=== PATIENT | male | born 1985 | race Caucasian/White ===

== ENCOUNTER 2016-11-20 10:12 | Day surgery (SDC) | payer SELFPAY ==
[~2016-11-20] VITALS: Ht 175.3 cm; Wt 63.5 kg
[2016-11-20] MEDS ORDERED: ONDANSETRON 4 MG/2 ML (SDV) Z0FRAN IVP ONE (10:45)
[2016-11-20] MEDS ORDERED: fentaNYL INJECTION 100 MCG/2 ML AMP IVP ONE (10:45)
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
[2016-11-20 11:01] LABS: BASOPHILS % (AUTO) 0 % (0-10); EOSINOPHILS # (AUTO) 0.5 10^3/uL (0.0-0.3); EOSINOPHILS % (AUTO) 4 % (0-10); LYMPHOCYTES # (AUTO) 2.2 X 10^3 (1.0-4.0); LYMPHOCYTES % (AUTO) 17 % (12-44); MEAN CORPUSCULAR HEMOGLOBIN 31 PG (25-34); MEAN CORPUSCULAR HGB CONC 34 G/DL (32-36); MEAN CORPUSCULAR VOLUME 90 FL (80-99); MEAN PLATELET VOLUME 9.6 FL (7.4-10.4); MONOCYTES # (AUTO) 0.9 X 10^3 (0.0-1.0); MONOCYTES % (AUTO) 7 % (0-12); NEUTROPHILS # (AUTO) 9.4 X 10^3 (1.8-7.8); NEUTROPHILS % (AUTO) 72 % (42-75); PLATELET COUNT 408 10^3/uL (130-400); RED CELL DISTRIBUTION WIDTH 13.3 % (10.0-14.5)
[2016-11-20] MEDS ORDERED: cefTRIAXone INJECTION 1,000 MG in NS (IVPB) 50 ML IV ONE (11:15)
[2016-11-20] MEDS ORDERED: CLINDAMYCIN INJECTION 900 MG in NS (IVPB) 50 ML IV ONE (11:15)
[2016-11-20] MEDS ORDERED: TETANUS,DIPTH,PERTUSS P/F (BOOSTRIX) 0.5 ML VIAL IM ONE (11:15)
[2016-11-20 11:22] LABS: ALANINE AMINOTRANSFERASE 51 U/L (0-55); ALBUMIN 3.8 GM/DL (3.2-4.5); ANION GAP 7 MMOL/L (5-14); ASPARTATE AMINO TRANSFERASE 20 U/L (5-34); BILIRUBIN,TOTAL 0.6 MG/DL (0.1-1.0); BLOOD UREA NITROGEN 22 MG/DL (7-18); BUN/CREATININE RATIO 17; CALCIUM 9.7 MG/DL (8.5-10.1); CARBON DIOXIDE 30 MMOL/L (21-32); CHLORIDE 96 MMOL/L (98-107); GFR ESTIMATED > 60; GLUCOSE 395 MG/DL (70-105); POTASSIUM 4.4 MMOL/L (3.6-5.0); SODIUM 133 MMOL/L (135-145); TOTAL PROTEIN 7.9 GM/DL (6.4-8.2); hs C REACTIVE PROTEIN 1.18 MG/DL (0.00-0.50)
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
[2016-11-20] MEDS ORDERED: NS IV 1000 ML 1,000 ML IV ONE (11:30)
[2016-11-20] MEDS ORDERED: inSUlin (REGULAR) HUMAN 1 UNIT/0.01 ML (CHARGE PER UNIT) IV ONE (11:30)
[2016-11-20] MEDS ORDERED: KETOROLAC 30 MG/ML VIAL IVP ONE (11:30)
[2016-11-20] MEDS ORDERED: VANCOMYCIN INJECTION 1,000 MG in NS (IVPB) 250 ML IV ONE (12:00)
[2016-11-20] MEDS ORDERED: D5 NS 1000 ML IV SOLUTION 1,000 ML IV ONE ×2 (13:21→13:30)
[2016-11-20] MEDS ORDERED: MIDAZOLAM 2 MG/2 ML (VERSED) VIAL ONE (13:26)
[2016-11-20] MEDS ORDERED: SUCCINYLCHOLINE INJ 100 MG/5 ML SYR ONE (13:26)
[2016-11-20] MEDS ORDERED: proPOfol 200 MG/20 ML (DIPRIVAN) VIAL IV ONE (13:26)
[2016-11-20] MEDS ORDERED: fentaNYL INJECTION 100 MCG/2 ML AMP ONE (13:26)
[2016-11-20] MEDS ORDERED: BUPIVACAINE 0.25% 30 ML (SENSORCAINE) VIAL ONE (13:34)
[2016-11-20] MEDS ORDERED: BUP/EPI 0.5% 1:200,000 (MARCAINE) 10ML VIAL IJ ONE (13:34)
[2016-11-20] MEDS ORDERED: NEO/POLY/BAC (NEOSPORIN) OINT 15 GM TUBE ONE (13:35)
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
--- OUTSIDE RECORDS SUMMARY | 2016-11-20 13:46 | XMS REPORT | Clinical Summary ---
Author Author [facility] Organization [facility] Address Unknown Phone Unavailable Care Team Providers Care Sql Database Developer Name Role Phone PCP Unavailable Source Comments Some departments are not documenting in the electronic medical record. If you do not see the information that you expected, contact Release of Information in the Health Information Management department at [phone] for further assistance in locating additional records.[facility] Allergies Active Allergy Reactions Severity Noted Date Comments Sulfa (Sulfonamide HIVES Medium 06/22/2014 Antibiotics) Current Medications Prescription Sig. Disp. Refills Start End Date Status Date amitriptyline (ELAVIL) 25 Take 1 Tab by mouth at 30 Tab 0 06/23/19 Active mg tablet bedtime daily. 15 amitriptyline (ELAVIL) 25 Take 1 Tab by mouth at 30 Tab 0 20 Active mg tablet bedtime daily. 15 Active Problems Not on file Social History Tobacco Use Types Packs/Day Years Used Date Never Assessed Sex Assigned at Date Recorded Not on file Last Filed Vital Signs Vital Sign Reading Time Taken Blood Pressure 130/91 06/22/2014 6:00 PM CDT Pulse 97 06/22/2014 6:00 PM CDT Temperature 36.7 C (98.1 F) 06/22/2014 12:44 PM CDT Respiratory Rate - - Oxygen Saturation 100% 06/22/2014 6:00 PM CDT Inhaled Oxygen - - Concentration Weight 63.5 kg (140 lb) 06/22/2014 12:44 PM CDT Height - - Body Mass Index - - Plan of Treatment Health Maintenance Due Date Last Done Comments PHYSICAL (COMPREHENSIVE) 10/12/1991 EXAM PERTUSSIS VACCINE 10/12/1995 TETANUS VACCINE 2001 INFLUENZA VACCINE 11/12/2016 Results Not on filefrom Last 3 Months
--- OUTSIDE RECORDS SUMMARY | 2016-11-20 13:47 | XMS REPORT ---
Author Author [employer], SYSTEM Organization Unknown Address Unknown Phone Unavailable Care Team Providers Care Java Solutions Architect Name Role Phone [facility] Unavailable Reason For Visit Chief Complaint HAND INJURY Social History Functional Status Vital Signs Results Chemistry from 03/11/2016 4:40 PMSODIUM 140 MMOL/L (136-145 MMOL/L) POTASSIUM 3.7 MMOL/L (3.5-5.1 MMOL/L) CHLORIDE 104 MMOL/L (98-107 MMOL/L) TCO2 27.7 MMOL/L (21.0-32.0 MMOL/L) *ANION GAP 8.3 MMOL/L (8.0-16.0 MMOL/L) BUN 9 MG/DL (7-18 MG/DL) CREATININE 0.79 MG/DL (0.70-1.30 MG/DL) *BUN/CREATININE RATIO 11.4 (9.1-17.0 ) GLUCOSE 114 MG/DL H (65-99 MG/DL) *GFR EST NON AFR GERMAN >90 ML/MIN *GFR EST AFR AMER >90 ML/MIN CALCIUM 8.3 MG/DL L (8.5-10.1 MG/DL) BILIRUBIN TOTAL 0.70 MG/DL (0.20-1.00 MG/DL) TOTAL PROTEIN 6.9 GM/DL (6.4-8.2 GM/DL) ALBUMIN 3.2 GM/DL L (3.4-5.0 GM/DL) *GLOBULIN 3.7 GM/DL H (2.3-3.5 GM/DL) *A/G RATIO 0.9 MG/DL L (1.5-2.2 MG/DL) ALK PHOS 68 U/L (46-116 U/L) ALT (SGPT) 42 U/L (14-59 U/L) AST (SGOT) 42 U/L H (15-37 U/L) Hematology from 03/11/2016 4:40 PMWBC 12.5 X10e3/UL H (3.6-11.2 X10e3/UL) RBC 4.07 X10e6/UL (4.06-5.63 X10e6/UL) HEMOGLOBIN 12.6 G/DL (12.5-16.3 G/DL) HEMATOCRIT 37.9 % (36.7-47.1 %) *MCV 93.2 FL (80.0-100.0 FL) *MCH 31.1 PG (27.0-33.0 PG) *MCHC 33.3 G/DL (32.0-36.0 G/DL) *RDW 14.4 % (12.3-17.0 %) *RDWSD 46.8 (37.1-47.8 ) PLATELET 265 X10e3/UL (159-386 X10e3/UL) *MPV 8.1 FL (7.4-10.4 FL) AUTOMATED DIFF PERFORMED SEGS 75.0 % *LYMPHOCYTES 16.7 % *MONOCYTES 5.9 % *EOSINOPHILS 1.5 % *BASOPHILS 0.9 % *ABSOLUTE NEUTROPHILS 9.40 X10e3/UL H (1.80-7.80 X10e3/UL) *ABSOLUTE LYMPHOCYTES 2.10 X10e3/UL (1.00-3.00 X10e3/UL) *ABSOLUTE MONOCYTES 0.70 X10e3/UL (0.30-1.00 X10e3/UL) *ABSOLUTE EOSINOPHILS 0.20 X10e3/UL (0.00-0.50 X10e3/UL) *ABSOLUTE BASOPHILS 0.10 X10e3/UL (0.00-0.20 X10e3/UL) DX Radiology from 03/11/2016 3:28 PMHAND RIGHT 3 VIEWS History: hand injury . Technique: 3view hand Priors: None. Findings: There is no fracture. There is no dislocation. The distal radius and ulna appear intact. The carpal bones and joint spaces appear well maintained. No radiopaque foreign bodies identified. Impression: Unremarkable radiographs of the right hand. Electronically signed by: Quincy Martinez MD Dictated: 03/11/2016 15:43 Problems Encounter Diagnosis No relevant problems exist. Additional Problems * Anxiety Comment:Problem resolved by [facility] Workflow upon Discharge, Status: Resolved. * Bipolar Affective Disorder, Current Episode Depression Comment:Problem resolved by [facility] Work[employer] upon Discharge, Status:Resolved. * Bipolar Disorder Comment:Problem resolved by [facility] Workflow upon Discharge, Status:Resolved. * Blood Glucose Abnormal Comment:Problem resolved by [facility] Workflow upon Discharge, Status:Resolved. * Delusional Disorder Comment:Problem resolved by [facility] Workflow upon Discharge, Status:Resolved. * Depression Comment:Problem resolved by [employer] Workflow upon Discharge, Status :Resolved. * Diabetes Mellitus Comment:Problem resolved by [facility] Workflow upon Discharge , Status:Resolved. * Diabetes Mellitus, Type 2 Comment:Problem resolved by [facility] Workflow upon Discharge, Status:Resolved. * Drug Abuse Comment:Problem resolved by [facility] Workflow upon Discharge, Status :Resolved. * Drug Overdose Comment:Problem resolved by [facility] Workflow upon Discharge, Status:Resolved. * Fall Risk Comment:Problem resolved by [employer] Workflow upon Discharge, Rank:3 - Low, Status:Resolved. * Feeling Suicidal Comment:Problem resolved by [facility] Workflow upon Discharge, Status:Resolved. * Hyperglycemia Comment:Problem resolved by [employer] Workflow upon Discharge, Status:Resolved. * Hyperglycemia Comment:Problem resolved by [employer] Workflow upon Discharge, Status:Resolved. * Infection Risk Comment:Problem resolved by [employer] Workflow upon Discharge, Status:Resolved. * Mood Disorder Comment:Problem resolved by [employer] Workflow upon Discharge, Status:Resolved. * Mood Disorder Comment:Problem resolved by [employer] Workflow upon Discharge, Status:Resolved. * Rhabdomyolysis Comment:Problem resolved by [facility] Workflow upon Discharge, Status:Resolved. Encounters Encounter Diagnosis No relevant problems exist. Plan of Care Procedures * Completed , on 02/19/2011 12:00 AM * Completed , on 10/27/2010 12:00 AM * Completed , on 10/22/2010 12:00 AM * Completed , on 10/17/2010 12:00 AM * Completed , on 10/17/2010 12:00 AM * Completed , on 01/18/2009 12:00 AM Immunizations * Influenza, seasonal, injectable (NOVARTIS VACCIN, Lot # [id number]); Administered 02/23/2014 9:20 AM; 0.5 ML=1 DOSE, INTRAMUSCL Hospital Course Hospital Discharge Instructions Allergies, Adverse Reactions, Alerts * Sulfa (Sulfonamide Antibiotics) causes Hives. * doxycycline causes Severe Nausea. * Latex Allergy has not been assessed. * IV Contrast Allergy has not been assessed. * No Known Food Allergies. Medication Medication reconciliation has not been performed.
--- OUTSIDE RECORDS SUMMARY | 2016-11-20 13:47 | XMS REPORT ---
Author Author GENERATED, SYSTEM Organization Unknown Address Unknown Phone Unavailable Care Team Providers Care Relocation Services Specialist Name Role Phone UNASSIGNED DOCTOR , DOCTOR PP Reason For Visit Reason for Visit from 04/19/2016 7:49 AM:* Pt Stated Reason for Adm : Paranoid and unable to care for himself Reason for Visit from 04/18/2016 3:00 AM:* Pt Stated Reason for Adm : Paranoid and unable to care for herself Chief Complaint UNSPECIFIED SCHIZOPHRENIA OR OTHER Social History Social History from 04/20/2016 10:32 AM:* Tobacco Use? : Current Everyday Smoker Social History from 04/19/2016 7:49 AM:* Tobacco Use? : Current Everyday Smoker Social History from 04/18/2016 3:00 AM:* Tobacco Use? : Current Everyday Smoker Functional Status Functional Status from 04/20/2016 9:00 AM:* LOC : Alert * Oriented To : Person,Place,Time,Event * Weight Bearing Status : Full * Assist Level : Independent * # Assists : Independent Functional Status from 04/19/2016 7:15 PM:* LOC : Alert * Oriented To : Person,Place,Time,Event * Weight Bearing Status : Full * Assist Level : Independent * # Assists : Independent Functional Status from 04/19/2016 9:00 AM:* LOC : Drowsy * Oriented To : Person,Place,Time * Weight Bearing Status : Full * Assist Level : Independent * # Assists : Independent Functional Status from 04/18/2016 9:00 PM:* LOC : Irritable * Oriented To : Person,Place,Time,Event * Weight Bearing Status : Full * Assist Level : Independent * # Assists : Independent Functional Status from 04/18/2016 10:14 AM:* LOC : Drowsy * Oriented To : Person,Place,Time,Event * Weight Bearing Status : Full * Assist Level : Independent * # Assists : Independent Functional Status from 04/18/2016 3:00 AM:* LOC : Lethargic * Oriented To : Person,Place * Weight Bearing Status : Full * Assist Level : Independent * # Assists : Independent Vital Signs Hospital Vital Signs from 04/19/2016 6:36 AM:* Weight : 64.7/ kg * Height : 5/9 ft,in * Temperature : 97.2 F * Pulse : 66 * Respirations : 20 * BP : 118/84 Hospital Vital Signs from 04/18/2016 8:32 AM:* Height : 5/9 ft,in Hospital Vital Signs from 04/18/2016 6:29 AM:* Height : 5/9 ft,in * Temperature : 97.6 F * Pulse : 106 * Respirations : 18 * BP : 104/77 Hospital Vital Signs from 04/18/2016 3:00 AM:* Weight : 62.4/ kg * Height : 5/9 ft,in Hospital Vital Signs from 04/18/2016 2:38 AM:* Weight : 62.4/ kg * Height : 5/9 ft,in * Temperature : 97.9 F * Pulse : 78 * Respirations : 18 * BP : 103/68 Results Chemistry from 04/19/2016 7:43 AMSODIUM 137 MMOL/L (136-145 MMOL/L) POTASSIUM 4.5 MMOL/L (3.5-5.1 MMOL/L) CHLORIDE 105 MMOL/L (98-107 MMOL/L) TCO2 28.9 MMOL/L (21.0-32.0 MMOL/L) *ANION GAP 3.1 MMOL/L L (8.0-16.0 MMOL/L) BUN 14 MG/DL (7-18 MG/DL) CREATININE 0.83 MG/DL (0.70-1.30 MG/DL) *BUN/CREATININE RATIO 16.9 (9.1-17.0 ) GLUCOSE 166 MG/DL H (65-99 MG/DL) *GFR EST NON AFR BULGARIAN >90 ML/MIN *GFR EST AFR AMER >90 ML/MIN CALCIUM 8.4 MG/DL L (8.5-10.1 MG/DL) ALBUMIN 2.7 GM/DL L (3.4-5.0 GM/DL) PHOSPHORUS 2.9 MG/DL (2.6-4.7 MG/DL) CK 955 U/L H (39-308 U/L) Urinalysis from 04/18/2016 2:40 PM* Status: Final Result URINALYSIS Specimen Number: [id number] Sample Collection Date/Time: 04/18/2016 2:40 PM Specimen Source: *URINE COLOR DK YELLOW (STRAW/YELL/DK YELL ) *URINE APPEARANCE CLOUDY A (CLEAR ) URINE PH 6.0 (5.0-8.0 ) URINE SPECIFIC GRAVITY >1.030 (<=1.005->=1.030 ) *URINE GLUCOSE 500 MG/DL A (NEGATIVE MG/DL) *URINE BILIRUBIN NEGATIVE (NEGATIVE ) *URINE KETONES NEGATIVE MG/DL (NEGATIVE MG/DL) *URINE BLOOD MODERATE A (NEGATIVE ) *URINE PROTEIN 100 MG/DL A (NEGATIVE MG/DL) *URINE UROBILINOGEN 0.2 EU/DL (0.2-1.0 EU/DL) *URINE NITRITES POSITIVE A (NEGATIVE ) *URINE LEUKOCYTES SMALL A (NEGATIVE ) *MICROSCOPIC EXAM PERFORMED PERFORMED *WBC URINE PACKED FIELD /HPF A (0-5 /HPF) *RBC URINE PACKED FIELD /HPF A (0-1 /HPF) *MUCOUS THREADS FEW /LPF A (NEGATIVE /LPF) *BACTERIA MANY /HPF A (NEGATIVE /HPF) *YEAST FEW /HPF A (NEGATIVE /HPF) Microbiology from 04/18/2016 2:40 PM* CULTURE URINE Specimen Number: [id number] Sample Collection Date/Time: 04/18/2016 2:40 PM Specimen Source: Urine Clean Catch CULTURE URINE: Escherichia coli >100,000 cfu/ml *ISOLATE1: Escherichia coli 1 Comment Result Value Escherichia coli Result Status Final Result Ampicillin =4 S Ampicillin/sulbactam <=2 S Aztreonam <=1 S Cefazolin <=4 S Cefepime <=1 S Ceftazidime <=1 S Ceftriaxone <=1 S Ertapenem <=0.5 S ESBL Neg - Gentamicin <=1 S Levofloxacin <=0.12 S Meropenem <=0.25 S Nitrofurantoin <=16 S Piperacillin/tazobactam <=4 S Tobramycin <=1 S Trimethoprim/Sulfa <=20 S Problems Encounter Diagnosis * Mood Disorder Status:Active. Additional Problems * Acute Pain Comment:Problem resolved by [facility] Workflow upon Discharge, Status :Resolved. * Anxiety Comment:Problem resolved by [facility] Workflow [...] Workflow upon Discharge, Status:Resolved. Encounters Encounter Diagnosis * Mood Disorder Status:Active. Plan of Care Follow-up Appointments from 04/20/2016 10:32 AM:* #1 Office appointment: : Per [facility] Procedures * Completed , on 02/19/2011 12:00 AM * Completed , on 10/27/2010 12:00 AM * Completed , on 10/22/2010 12:00 AM * Completed , on 10/17/2010 12:00 AM * Completed , on 10/17/2010 12:00 AM * Completed , on 01/18/2009 12:00 AM Immunizations * Influenza, seasonal, injectable (NOVARTIS VACCIN, Lot # [id number]); Administered 02/23/2014 9:20 AM; 0.5 ML=1 DOSE, INTRAMUSCL Hospital Course Hospital Discharge Instructions How to care for yourself at home from 04/20/2016 10:32 AM:* Discharge Activity : Activity as tolerated * Discharge Diet : Modification as given by physician * Discharge Diet: : ADA diet * Call your doctor if: : Fever over 101 F or severe chills,Chest pain or other unexplained symptoms,Tingling or numbness develops,A sudden increase or decrease in weight,You have persistent or worsening symptoms Allergies, Adverse Reactions, Alerts * Sulfa (Sulfonamide Antibiotics) causes Hives. * doxycycline causes Severe Nausea. * No Latex Allergy. * No IV Contrast Allergy. * No Known Food Allergies. Medication It is the responsibility of the patient or patient high school admissions representative to confirm the list of medications with either the patient's personal care provider or the patient's follow-up care provider to ensure the patient has an appropriate list of medications to take at home. Discharge medications New medications* cephalexin 500 mg Capsule, Ordered By: ELMER CALIXTO, PAC Directions: 1 capsule oral every twelve hours for UTI Additional Instructions: for 7 days (11 more doses) * divalproex (Depakote) 500 mg tablet,delayed release (DR/EC), Ordered By: ELMER CALIXTO, PAC Directions: 1 tablet oral twice a day for mood stabilization * loperamide (Anti-Diarrheal (loperamide)) 2 mg Tablet, Ordered By: ELMER CALIXTO, PAC Directions: 1 tablet oral every four hours for diarrhea Additional Instructions: no more than 4 caplets/day * nicotine (polacrilex) (Nicorelief) 2 mg Gum, Ordered By: ELMER CALIXTO, PAC Directions: 1 gum oral daily for SMOKING CESSATION Additional Instructions: DO NOT GIVE IF PATIENT UNDER AGE 18 OR . * QUEtiapine 25 mg Tablet, Ordered By: ELMER CALIXTO, PAC Directions: 1 tablet oral twice a day every morning and at bedtime for mood stabilization * insulin aspart (NovoLOG) 100 unit/mL Solution, Ordered By: ELMER CALIXTO, PAC Directions: 3 unit subcutaneous three times a day with or after meal Stopped medications* None
--- OUTSIDE RECORDS SUMMARY | 2016-11-20 13:47 | XMS REPORT ---
Author Author GENERATED, SYSTEM Organization Unknown Address Unknown Phone Unavailable Care Team Providers Care County Health Officer Name Role Phone UNASSIGNED DOCTOR , DOCTOR PP Reason For Visit Reason for Visit from 05/04/2016 3:07 PM:* Pt Stated Reason for Adm : Altered mental status Chief Complaint ALTERED MENTAL STATUS Social History Social History from 05/05/2016 10:15 AM:* Tobacco Use? : Current Everyday Smoker Social History from 05/04/2016 3:07 PM:* Tobacco Use? : Current Everyday Smoker Functional Status Functional Status from 05/05/2016 7:24 AM:* LOC : Alert * Oriented To : Person,Place,Time * Weight Bearing Status : Full * Assist Level : Independent * # Assists : Independent Functional Status from 05/04/2016 7:59 PM:* LOC : Alert * Oriented To : Person,Place,Time,Event * Weight Bearing Status : Full * Assist Level : Partial * # Assists : 1 Functional Status from 05/04/2016 3:07 PM:* LOC : Alert * Oriented To : Person,Place,Time * Weight Bearing Status : Other (See reason in Comments) * Assist Level : Partial * # Assists : 2 Vital Signs Hospital Vital Signs from 05/05/2016 9:45 AM:* Weight : 67.1/ kg * Height : 5/9 ft,in Hospital Vital Signs from 05/05/2016 7:30 AM:* Heart Rate : 98 * Resp Rate : 16 * Systolic BP (mmHg) : 122 * Diastolic BP (mmHg) : 92 * Mean BP (mmHg) : 104 Hospital Vital Signs from 05/05/2016 3:00 AM:* Temp : 97.1 * Heart Rate : 101 * Resp Rate : 14 * Systolic BP (mmHg) : 131 * Diastolic BP (mmHg) : 87 * Mean BP (mmHg) : 99 Hospital Vital Signs from 05/05/2016 2:30 AM:* Heart Rate : 104 * Resp Rate : 10 Hospital Vital Signs from 05/05/2016 2:00 AM:* Heart Rate : 99 * Systolic BP (mmHg) : 132 * Diastolic BP (mmHg) : 77 * Mean BP (mmHg) : 91 Hospital Vital Signs from 05/05/2016 1:30 AM:* Heart Rate : 107 * Resp Rate : 12 Hospital Vital Signs from 05/05/2016 1:00 AM:* Heart Rate : 106 * Resp Rate : 8 * Systolic BP (mmHg) : 126 * Diastolic BP (mmHg) : 89 * Mean BP (mmHg) : 95 Hospital Vital Signs from 05/05/2016 12:30 AM:* Heart Rate : 107 * Resp Rate : 14 Hospital Vital Signs from 05/05/2016 12:00 AM:* Heart Rate : 103 * Resp Rate : 9 * Systolic BP (mmHg) : 132 * Diastolic BP (mmHg) : 90 * Mean BP (mmHg) : 101 Hospital Vital Signs from 05/04/2016 11:30 PM:* Heart Rate : 114 * Resp Rate : 10 * Systolic BP (mmHg) : 72 * Diastolic BP (mmHg) : 53 * Mean BP (mmHg) : 60 Hospital Vital Signs from 05/04/2016 11:00 PM:* Temp : 97.8 * Resp Rate : 101 * Systolic BP (mmHg) : 72 * Diastolic BP (mmHg) : 53 * Mean BP (mmHg) : 60 Hospital Vital Signs from 05/04/2016 10:30 PM:* Heart Rate : 99 * Resp Rate : 11 * Systolic BP (mmHg) : 138 * Diastolic BP (mmHg) : 94 * Mean BP (mmHg) : 104 Hospital Vital Signs from 05/04/2016 10:00 PM:* Heart Rate : 118 * Resp Rate : 21 * Systolic BP (mmHg) : 138 * Diastolic BP (mmHg) : 80 * Mean BP (mmHg) : 94 Hospital Vital Signs from 05/04/2016 9:30 PM:* Heart Rate : 108 * Resp Rate : 12 * Systolic BP (mmHg) : 145 * Diastolic BP (mmHg) : 106 * Mean BP (mmHg) : 115 Hospital Vital Signs from 05/04/2016 9:00 PM:* Heart Rate : 101 * Resp Rate : 8 * Systolic BP (mmHg) : 141 * Diastolic BP (mmHg) : 98 * Mean BP (mmHg) : 106 Hospital Vital Signs from 05/04/2016 8:30 PM:* Heart Rate : 97 * Resp Rate : 9 * Systolic BP (mmHg) : 145 * Diastolic BP (mmHg) : 98 * Mean BP (mmHg) : 109 Hospital Vital Signs from 05/04/2016 8:00 PM:* Heart Rate : 85 * Resp Rate : 13 * Systolic BP (mmHg) : 160 * Diastolic BP (mmHg) : 108 * Mean BP (mmHg) : 126 Hospital Vital Signs from 05/04/2016 7:59 PM:* Heart Rate : 94 Hospital Vital Signs from 05/04/2016 7:30 PM:* Heart Rate : 77 * Resp Rate : 15 * Systolic BP (mmHg) : 164 * Diastolic BP (mmHg) : 118 * Mean BP (mmHg) : 132 Hospital Vital Signs from 05/04/2016 7:00 PM:* Temp : 97 * Heart Rate : 79 * Resp Rate : 10 * Systolic BP (mmHg) : 165 * Diastolic BP (mmHg) : 107 * Mean BP (mmHg) : 129 Hospital Vital Signs from 05/04/2016 6:30 PM:* Heart Rate : 89 * Resp Rate : 12 * Systolic BP (mmHg) : 146 * Diastolic BP (mmHg) : 87 * Mean BP (mmHg) : 106 Hospital Vital Signs from 05/04/2016 6:00 PM:* Heart Rate : 83 * Resp Rate : 12 * Systolic BP (mmHg) : 157 * Diastolic BP (mmHg) : 87 * Mean BP (mmHg) : 111 Hospital Vital Signs from 05/04/2016 5:30 PM:* Heart Rate : 92 * Resp Rate : 10 * Systolic BP (mmHg) : 165 * Diastolic BP (mmHg) : 107 * Mean BP (mmHg) : 126 Hospital Vital Signs from 05/04/2016 5:00 PM:* Heart Rate : 76 * Resp Rate : 9 * Systolic BP (mmHg) : 162 * Diastolic BP (mmHg) : 99 * Mean BP (mmHg) : 125 Hospital Vital Signs from 05/04/2016 4:30 PM:* Heart Rate : 95 * Resp Rate : 17 * Systolic BP (mmHg) : 140 * Diastolic BP (mmHg) : 85 * Mean BP (mmHg) : 102 Hospital Vital Signs from 05/04/2016 4:05 PM:* BP : 154/113 Hospital Vital Signs from 05/04/2016 4:00 PM:* Heart Rate : 90 * Resp Rate : 9 * Systolic BP (mmHg) : 154 * Diastolic BP (mmHg) : 113 * Mean BP (mmHg) : 130 Hospital Vital Signs from 05/04/2016 3:45 PM:* Heart Rate : 84 * Resp Rate : 13 * Systolic BP (mmHg) : 163 * Diastolic BP (mmHg) : 108 * Mean BP (mmHg) : 128 Hospital Vital Signs from 05/04/2016 3:30 PM:* Heart Rate : 80 * Resp Rate : 12 * Systolic BP (mmHg) : 146 * Diastolic BP (mmHg) : 120 * Mean BP (mmHg) : 128 Hospital Vital Signs from 05/04/2016 3:15 PM:* Heart Rate : 78 * Resp Rate : 11 * Systolic BP (mmHg) : 160 * Diastolic BP (mmHg) : 104 * Mean BP (mmHg) : 124 Hospital Vital Signs from 05/04/2016 3:07 PM:* Weight : 67.1/ kg * Height : 5/9 ft,in Hospital Vital Signs from 05/04/2016 3:00 PM:* Heart Rate : 79 * Resp Rate : 18 * Systolic BP (mmHg) : 140 * Diastolic BP (mmHg) : 95 * Mean BP (mmHg) : 118 Hospital Vital Signs from 05/04/2016 2:50 PM:* Temp : 99 * Heart Rate : 88 * Resp Rate : 14 * Systolic BP (mmHg) : 154 * Diastolic BP (mmHg) : 99 * Mean BP (mmHg) : 83 Results Chemistry from 05/05/2016 6:37 AMCK 371 U/L H (39-308 U/L) Chemistry from 05/04/2016 11:45 PMCK 384 U/L H (39-308 U/L) Chemistry from 05/04/2016 3:43 PMLACTIC ACID 1.9 mmol/L H (0.9-1.7 mmol/L) Problems Encounter Diagnosis * Alcohol Abuse Comment:Problem resolved by [facility] Workflow upon Discharge, Status:Resolved. * Altered Mental Status Comment:Problem resolved by [facility] Workflow upon Discharge, Status:Resolved. * Amphetamine Abuse Comment:Problem resolved by [facility] Workflow upon Discharge , Status:Resolved. * Cannabis Abuse Comment:Problem resolved by [facility] Workflow upon Discharge, Status:Resolved. * Fall Risk Comment:Problem resolved by [facility] Workflow upon Discharge, Status: Resolved. Additional Problems * Acute Pain Comment:Problem resolved [...] by [facility] Workflow upon Discharge, Status:Resolved. * Feeling Suicidal Comment:Problem resolved by [...] upon Discharge, Status:Resolved. Encounters Encounter Diagnosis * Alcohol Abuse Comment:Problem resolved by [facility] Workflow upon Discharge, Status:Resolved. * Altered Mental Status Comment:Problem resolved by [facility] Workflow upon Discharge, Status:Resolved. * Amphetamine Abuse Comment:Problem resolved by [facility] Workflow upon Discharge , Status:Resolved. * Cannabis Abuse Comment:Problem resolved by [facility] Workflow upon Discharge, Status:Resolved. * Fall Risk Comment:Problem resolved by [facility] Workflow upon Discharge, Status: Resolved. Plan of Care Procedures * Completed , on 02/19/2011 12:00 AM * Completed , on 10/27/2010 12:00 AM * Completed , on 10/22/2010 12:00 AM * Completed , on 10/17/2010 12:00 AM * Completed , on 10/17/2010 12:00 AM * Completed , on 01/18/2009 12:00 AM Immunizations * Influenza, seasonal, injectable (NOVARTIS VACCIN, Lot # [id number]); Administered 02/23/2014 9:20 AM; 0.5 ML=1 DOSE, INTRAMUSCL Hospital Course Hospital Discharge Instructions How to care for yourself at home from 05/05/2016 10:15 AM:* Discharge Activity : Activity as tolerated * Discharge Diet : Modification as given by physician * Discharge Diet: : 2000 calorie ADA * Call your doctor if: : Fever over 101 F or severe chills,Chest pain or other unexplained symptoms,Tingling or numbness develops,A sudden increase or decrease in weight,You have persistent or worsening symptoms,If you have Heart Failure and you gain 3 pounds within 1 week or your symptoms worsen. (Weigh at home tomorrow morning) * Specific Discharge Teaching Instructions provided: : No * Discharge on Warfarin : No Allergies, Adverse Reactions, Alerts * Bactrim causes Vomiting. * Sulfa (Sulfonamide Antibiotics) causes Hives. * doxycycline causes Severe Nausea. * Latex Allergy has not been assessed. * IV Contrast Allergy has not been assessed. * No Known Food Allergies. Medication Medication reconciliation has not been performed.
--- OUTSIDE RECORDS SUMMARY | 2016-11-20 13:47 | XMS REPORT ---
Author Author GENERATED, SYSTEM Organization Unknown Address Unknown Phone Unavailable Care Team Providers Care Pressure Control Supervisor Name Role Phone [facility] Unavailable Reason For Visit Reason for Visit from 06/14/2014 9:48 AM:* Pt Stated Reason for Adm : drug use Chief Complaint OVERDOSE Social History Social History from 06/16/2014 12:55 PM:* Tobacco Use? : Current Everyday Smoker Social History from 06/14/2014 9:48 AM:* Tobacco Use? : Current Everyday Smoker Functional Status Functional Status from 06/16/2014 8:33 AM:* LOC : Alert * Oriented To : Person,Place,Time,Event * Weight Bearing Status : Full * Assist Level : Independent * # Assists : 1 Functional Status from 06/15/2014 7:30 PM:* LOC : Alert * Oriented To : Person,Place,Time,Event * Weight Bearing Status : Full * Assist Level : Independent * # Assists : Independent Functional Status from 06/15/2014 3:11 PM:* LOC : Alert * Oriented To : Person,Place,Time,Event * Weight Bearing Status : Full * Assist Level : Independent * # Assists : 1 Functional Status from 06/15/2014 7:05 AM:* LOC : Alert * Oriented To : Person,Place,Time,Event * Weight Bearing Status : Full * Assist Level : Independent * # Assists : Independent Functional Status from 06/14/2014 8:04 PM:* LOC : Alert * Oriented To : Person,Place,Time,Event * Weight Bearing Status : Full * Assist Level : Partial * # Assists : 1 Functional Status from 06/14/2014 3:20 PM:* LOC : Drowsy * Oriented To : Person,Place,Time,Event * Weight Bearing Status : Full * Assist Level : Dependent * # Assists : 1 Functional Status from 06/14/2014 9:48 AM:* LOC : Alert * Oriented To : Person,Place,Time,Event * Weight Bearing Status : Full * Assist Level : Partial * # Assists : 1 Vital Signs Hospital Vital Signs from 06/16/2014 11:05 AM:* Height : 5/9 ft,in * Temperature : 97.2 F * Pulse : 87 * Respirations : 20 * BP : 103/58 Hospital Vital Signs from 06/16/2014 7:24 AM:* Height : 5/9 ft,in * Temperature : 96.2 F * Pulse : 61 * Respirations : 20 * BP : 109/65 Hospital Vital Signs from 06/16/2014 3:30 AM:* Height : 5/9 ft,in * Temperature : 97.0 F * Pulse : 83 * Respirations : 20 * BP : 103/63 Hospital Vital Signs from 06/15/2014 10:55 PM:* Height : 5/9 ft,in * Temperature : 96.7 F * Pulse : 75 * Respirations : 20 * BP : 102/53 Hospital Vital Signs from 06/15/2014 7:31 PM:* Height : 5/9 ft,in * Temperature : 98.9 F * Pulse : 76 * Respirations : 20 * BP : 100/55 Hospital Vital Signs from 06/15/2014 2:31 PM:* Weight : 69.3/ kg * Height : 5/9 ft,in * Temperature : 98.0 F * Pulse : 80 * Respirations : 20 * BP : 121/64 Hospital Vital Signs from 06/15/2014 11:30 AM:* Temp : 97.9 * Heart Rate : 64 * Resp Rate : 12 * Systolic BP (mmHg) : 98 * Diastolic BP (mmHg) : 57 * Mean BP (mmHg) : 69 * O2 Saturation (%) : 98 Hospital Vital Signs from 06/15/2014 9:56 AM:* Weight : 64.1/ kg * Height : 5/9 ft,in Hospital Vital Signs from 06/15/2014 7:00 AM:* Temp : 97.5 * Heart Rate : 72 * Resp Rate : 12 * Systolic BP (mmHg) : 94 * Diastolic BP (mmHg) : 78 * Mean BP (mmHg) : 88 * O2 Saturation (%) : 98 Hospital Vital Signs from 06/15/2014 5:44 AM:* Weight : 64.1/ kg * Height : 5/9 ft,in Hospital Vital Signs from 06/15/2014 5:30 AM:* Heart Rate : 66 * O2 Saturation (%) : 98 Hospital Vital Signs from 06/15/2014 5:00 AM:* Heart Rate : 65 * Systolic BP (mmHg) : 91 * Diastolic BP (mmHg) : 49 * Mean BP (mmHg) : 69 * O2 Saturation (%) : 99 Hospital Vital Signs from 06/15/2014 4:30 AM:* Heart Rate : 73 * Resp Rate : 13 * O2 Saturation (%) : 98 Hospital Vital Signs from 06/15/2014 4:00 AM:* Heart Rate : 67 * O2 Saturation (%) : 98 Hospital Vital Signs from 06/15/2014 3:30 AM:* Heart Rate : 70 * Resp Rate : 18 * Systolic BP (mmHg) : 93 * Diastolic BP (mmHg) : 55 * Mean BP (mmHg) : 73 * O2 Saturation (%) : 97 Hospital Vital Signs from 06/15/2014 3:00 AM:* Heart Rate : 68 * Resp Rate : 15 * O2 Saturation (%) : 98 Hospital Vital Signs from 06/15/2014 2:30 AM:* Heart Rate : 67 * Resp Rate : 12 * O2 Saturation (%) : 98 Hospital Vital Signs from 06/15/2014 2:00 AM:* Heart Rate : 67 * Resp Rate : 8 * O2 Saturation (%) : 98 Hospital Vital Signs from 06/15/2014 1:30 AM:* Heart Rate : 68 * O2 Saturation (%) : 98 Hospital Vital Signs from 06/15/2014 1:00 AM:* Heart Rate : 72 * Resp Rate : 11 * O2 Saturation (%) : 99 Hospital Vital Signs from 06/15/2014 12:30 AM:* Heart Rate : 68 * O2 Saturation (%) : 98 Hospital Vital Signs from 06/15/2014 12:00 AM:* Heart Rate : 73 * Resp Rate : 15 * Systolic BP (mmHg) : 89 * Diastolic BP (mmHg) : 56 * Mean BP (mmHg) : 68 * O2 Saturation (%) : 96 Hospital Vital Signs from 06/14/2014 11:30 PM:* Heart Rate : 73 * Resp Rate : 21 * O2 Saturation (%) : 98 Hospital Vital Signs from 06/14/2014 11:00 PM:* Heart Rate : 73 * Systolic BP (mmHg) : 84 * Diastolic BP (mmHg) : 51 * Mean BP (mmHg) : 64 * O2 Saturation (%) : 98 Hospital Vital Signs from 06/14/2014 10:30 PM:* Heart Rate : 78 * Resp Rate : 17 * O2 Saturation (%) : 98 Hospital Vital Signs from 06/14/2014 10:00 PM:* Heart Rate : 74 * Systolic BP (mmHg) : 87 * Diastolic BP (mmHg) : 53 * Mean BP (mmHg) : 66 * O2 Saturation (%) : 97 Hospital Vital Signs from 06/14/2014 9:30 PM:* Heart Rate : 71 * O2 Saturation (%) : 98 Hospital Vital Signs from 06/14/2014 9:00 PM:* Heart Rate : 71 * Resp Rate : 13 * Systolic BP (mmHg) : 73 * Diastolic BP (mmHg) : 37 * Mean BP (mmHg) : 49 * O2 Saturation (%) : 98 [facility] Vital Signs from 06/14/2014 8:30 PM:* Heart Rate : 74 * O2 Saturation (%) : 98 Hospital Vital Signs from 06/14/2014 8:04 PM:* Heart Rate : 72 [facility] Vital Signs from 06/14/2014 8:00 PM:* Heart Rate : 76 * Systolic BP (mmHg) : 95 * Diastolic BP (mmHg) : 56 * Mean BP (mmHg) : 72 * O2 Saturation (%) : 97 [facility] Vital Signs from 06/14/2014 7:30 PM:* Heart Rate : 76 * Resp Rate : 13 * O2 Saturation (%) : 98 Hospital Vital Signs from 06/14/2014 7:00 PM:* Temp : 98.4 * Heart Rate : 86 * Resp Rate : 18 * Systolic BP (mmHg) : 90 * Diastolic BP (mmHg) : 62 * Mean BP (mmHg) : 70 * O2 Saturation (%) : 98 [facility] Vital Signs from 06/14/2014 6:30 PM:* Heart Rate : 77 * Resp Rate : 16 * O2 Saturation (%) : 98 [facility] Vital Signs from 06/14/2014 4:00 PM:* Heart Rate : 81 * Resp Rate : 16 * Systolic BP (mmHg) : 83 * Diastolic BP (mmHg) : 52 * Mean BP (mmHg) : 64 * O2 Saturation (%) : 97 [facility] Vital Signs from 06/14/2014 3:30 PM:* Heart Rate : 81 * Resp Rate : 12 * Systolic BP (mmHg) : 89 * Diastolic BP (mmHg) : 52 * Mean BP (mmHg) : 67 * O2 Saturation (%) : 96 [facility] Vital Signs from 06/14/2014 3:20 PM:* Heart Rate : 79 Hospital Vital Signs from 06/14/2014 3:00 PM:* Temp : 98.3 * Heart Rate : 88 * Resp Rate : 13 * Systolic BP (mmHg) : 81 * Diastolic BP (mmHg) : 39 * Mean BP (mmHg) : 54 * O2 Saturation (%) : 97 Hospital Vital Signs from 06/14/2014 2:30 PM:* Heart Rate : 91 * Resp Rate : 16 * Systolic BP (mmHg) : 97 * Diastolic BP (mmHg) : 59 * Mean BP (mmHg) : 69 Hospital Vital Signs from 06/14/2014 2:00 PM:* Heart Rate : 85 * Resp Rate : 13 * Systolic BP (mmHg) : 91 * Diastolic BP (mmHg) : 56 * Mean BP (mmHg) : 69 [facility] Vital Signs from 06/14/2014 1:30 PM:* Heart Rate : 88 * Resp Rate : 19 * Systolic BP (mmHg) : 95 * Diastolic BP (mmHg) : 61 * Mean BP (mmHg) : 72 Hospital Vital Signs from 06/14/2014 1:00 PM:* Heart Rate : 91 * Resp Rate : 17 * Systolic BP (mmHg) : 100 * Diastolic BP (mmHg) : 67 * Mean BP (mmHg) : 79 Hospital Vital Signs from 06/14/2014 12:30 PM:* Heart Rate : 92 * Resp Rate : 11 * Systolic BP (mmHg) : 100 * Diastolic BP (mmHg) : 44 * Mean BP (mmHg) : 79 Hospital Vital Signs from 06/14/2014 12:00 PM:* Heart Rate : 95 * Resp Rate : 0 * Systolic BP (mmHg) : 83 * Diastolic BP (mmHg) : 44 * Mean BP (mmHg) : 59 Hospital Vital Signs from 06/14/2014 11:30 AM:* Heart Rate : 92 * Resp Rate : 13 * Systolic BP (mmHg) : 89 * Diastolic BP (mmHg) : 59 * Mean BP (mmHg) : 71 Hospital Vital Signs from 06/14/2014 11:00 AM:* Heart Rate : 97 * Resp Rate : 0 * Systolic BP (mmHg) : 100 * Diastolic BP (mmHg) : 50 * Mean BP (mmHg) : 64 Hospital Vital Signs from 06/14/2014 10:30 AM:* Heart Rate : 120 * Resp Rate : 18 * Systolic BP (mmHg) : 87 * Diastolic BP (mmHg) : 50 * Mean BP (mmHg) : 64 Hospital Vital Signs from 06/14/2014 10:15 AM:* Temp : 98.5 * Heart Rate : 112 * Resp Rate : 18 Hospital Vital Signs from 06/14/2014 10:00 AM:* Heart Rate : 123 * Resp Rate : 29 * Systolic BP (mmHg) : 107 * Diastolic BP (mmHg) : 85 * Mean BP (mmHg) : 93 Hospital Vital Signs from 06/14/2014 9:48 AM:* Weight : 64/ kg * Height : 5/9 ft,in Hospital Vital Signs from 06/14/2014 9:45 AM:* Heart Rate : 127 * Resp Rate : 42 * Systolic BP (mmHg) : 133 * Diastolic BP (mmHg) : 81 * Mean BP (mmHg) : 90 Results Chemistry from 06/16/2014 5:13 AMSODIUM 140 MMOL/L (136-145 MMOL/L) POTASSIUM 3.7 MMOL/L (3.5-5.1 MMOL/L) CHLORIDE 106 MMOL/L (98-107 MMOL/L) TCO2 28.1 MMOL/L (21.0-32.0 MMOL/L) ANION GAP 5.9 MMOL/L L (8.0-16.0 MMOL/L) BUN 15 MG/DL (7-18 MG/DL) CREATININE 0.69 MG/DL (0.63-1.13 MG/DL) BUN/CREATININE RATIO 21.7 H (9.1-17.0 ) GLUCOSE 152 MG/DL H (65-99 MG/DL) GFR EST NON AFR [place] >90 ML/MIN GFRA EST AFR AMER >90 ML/MIN CALCIUM 8.4 MG/DL L (8.5-10.1 MG/DL) Chemistry from 06/15/2014 2:24 PMCOCAINE NEGATIVE (NEG <150 ) PCP NEGATIVE (NEG <25 ) OXYCODONE NEGATIVE (NEG <100 ) *PROPOXYPHENE (NORPROPOXYPHENE) (LAB) NEGATIVE (NEG <300 ) CANNABINOIDS POSITIVE A (NEG <50 ) BENZODIAZEINE POSITIVE A (NEG <150 ) AMPHETAMINE POSITIVE A (NEG <500 ) BARBITURATES NEGATIVE (NEG <200 ) METHAMPHETAMINES POSITIVE A (NEG <500 ) METHADONE (UR) NEGATIVE (NEG <200 ) OPIATES NEGATIVE (NEG <100 ) TRICYCLICS NEGATIVE (NEG <300 ) Chemistry from 06/15/2014 3:50 AMSODIUM 139 MMOL/L (136-145 MMOL/L) POTASSIUM 4.4 MMOL/L (3.5-5.1 MMOL/L) CHLORIDE 107 MMOL/L (98-107 MMOL/L) TCO2 28.0 MMOL/L (21.0-32.0 MMOL/L) ANION GAP 4.0 MMOL/L L (8.0-16.0 MMOL/L) BUN 23 MG/DL H (7-18 MG/DL) CREATININE 0.83 MG/DL (0.63-1.13 MG/DL) BUN/CREATININE RATIO 27.7 H (9.1-17.0 ) GLUCOSE 216 MG/DL H (65-99 MG/DL) GFR EST NON AFR [place] >90 ML/MIN GFRA EST AFR AMER >90 ML/MIN CALCIUM 7.9 MG/DL L (8.5-10.1 MG/DL) BILIRUBIN TOTAL 1.37 MG/DL H (0.20-1.00 MG/DL) TOTAL PROTEIN 5.7 GM/DL L (6.4-8.2 GM/DL) ALBUMIN 2.8 GM/DL L (3.4-5.0 GM/DL) GLOBULIN 2.9 GM/DL (2.3-3.5 GM/DL) A/G RATIO 1.0 MG/DL L (1.5-2.2 MG/DL) ALK PHOS 61 U/L (46-116 U/L) ALT (SGPT) 21 U/L (14-59 U/L) AST (SGOT) 24 U/L (15-37 U/L) MAGNESIUM 1.3 MG/DL L (1.8-2.4 MG/DL) PHOSPHORUS 3.0 MG/DL (2.5-4.9 MG/DL) Hematology from 06/16/2014 5:13 AMWBC 10.0 X10e3/UL (3.6-11.2 X10e3/UL) RBC 4.14 X10e6/UL (4.06-5.63 X10e6/UL) HEMOGLOBIN 13.1 G/DL (12.5-16.3 G/DL) HEMATOCRIT 37.6 % (36.7-47.1 %) MCV 90.9 FL (80.0-100.0 FL) MCH 31.6 PG (27.0-33.0 PG) MCHC 34.7 G/DL (32.0-36.0 G/DL) RDW 13.0 % (12.3-17.0 %) RDWSD 40.7 (37.1-47.8 ) PLATELET 226 X10e3/UL (159-386 X10e3/UL) MPV 8.6 FL (7.4-10.4 FL) AUTOMATED DIFF PERFORMED SEGS 56.4 % LYMPHOCYTES 33.0 % MONOCYTES 6.1 % EOSINOPHILS 4.3 % BASOPHILS 0.2 % ABSOLUTE NEUTROPHILS 5.60 X10e3/UL (1.80-7.80 X10e3/UL) ABSOLUTE LYMPHOCYTES 3.30 X10e3/UL H (1.00-3.00 X10e3/UL) ABSOLUTE MONOCYTES 0.60 X10e3/UL (0.30-1.00 X10e3/UL) ABSOLUTE EOSINOPHILS 0.40 X10e3/UL (0.00-0.50 X10e3/UL) ABSOLUTE BASOPHILS 0.00 X10e3/UL (0.00-0.20 X10e3/UL) Hematology from 06/15/2014 3:50 AMWBC 10.2 X10e3/UL (3.6-11.2 X10e3/UL) RBC 4.17 X10e6/UL (4.06-5.63 X10e6/UL) HEMOGLOBIN 13.0 G/DL (12.5-16.3 G/DL) HEMATOCRIT 38.0 % (36.7-47.1 %) MCV 91.3 FL (80.0-100.0 FL) MCH 31.1 PG (27.0-33.0 PG) MCHC 34.1 G/DL (32.0-36.0 G/DL) RDW 13.2 % (12.3-17.0 %) RDWSD 41.6 (37.1-47.8 ) PLATELET 231 X10e3/UL (159-386 X10e3/UL) MPV 8.6 FL (7.4-10.4 FL) AUTOMATED DIFF PERFORMED SEGS 50.3 % LYMPHOCYTES 38.8 % MONOCYTES 6.8 % EOSINOPHILS 3.8 % BASOPHILS 0.3 % ABSOLUTE NEUTROPHILS 5.10 X10e3/UL (1.80-7.80 X10e3/UL) ABSOLUTE LYMPHOCYTES 3.90 X10e3/UL H (1.00-3.00 X10e3/UL) ABSOLUTE MONOCYTES 0.70 X10e3/UL (0.30-1.00 X10e3/UL) ABSOLUTE EOSINOPHILS 0.40 X10e3/UL (0.00-0.50 X10e3/UL) ABSOLUTE BASOPHILS 0.00 X10e3/UL (0.00-0.20 X10e3/UL) Problems Encounter Diagnosis * Blood Glucose Abnormal Comment:Problem resolved by [facility] upon Discharge, Status:Resolved. * Drug Overdose Comment:Problem resolved by [facility] upon Discharge, Status:Resolved. * Fall Risk Comment:Problem resolved by [facility] upon Discharge, Rank:3 - Low, Status:Resolved. * Infection Risk Comment:Problem resolved by [facility] upon Discharge, Status:Resolved. * Mood Disorder Comment:Problem resolved by [facility] upon Discharge, Status:Resolved. Additional Problems * Bipolar Affective Disorder, Current Episode Depression [...] [facility] upon Discharge, Status :Resolved. * Feeling Suicidal Comment:Problem resolved by [facility] upon Discharge, Status:Resolved. * Hyperglycemia Comment:Problem resolved by [facility] upon Discharge, Status:Resolved. * Hyperglycemia Comment:Problem resolved by [facility] upon Discharge, Status:Resolved. * Rhabdomyolysis Comment:Problem resolved by [facility] upon Discharge, Status:Resolved. Encounters Encounter Diagnosis * Blood Glucose Abnormal Comment:Problem resolved by [facility] upon Discharge, Status:Resolved. * Drug Overdose Comment:Problem resolved by [facility] upon Discharge, Status:Resolved. * Fall Risk Comment:Problem resolved by [facility] upon Discharge, Rank:3 - Low, Status:Resolved. * Infection Risk Comment:Problem resolved by [facility] upon Discharge, Status:Resolved. * Mood Disorder Comment:Problem resolved by [facility] upon Discharge, Status:Resolved. Plan of Care Follow-up Appointments from 06/16/2014 12:55 PM:* #1 Office appointment: : Dr. Valdes * #1 Date/Time : 07/07/2014 1:30 PM * Address # 1 : [facility]: [address], [place] - Treatment Plan from 06/16/2014 1:00 PM:* Care Management Note : Met with both patient and mother. Mother states she has the money for patient's insulin and also is going to pay his bill at [facility] so patient can continue seeing Dr. Valdes there. [facility] is also working with patient to get medicaid. Stressed importance for patient to follow through with [facility] and [facility] , that they can help patient with his insulin through the [employer], but MUST follow through. Also, needs to be sure to follow through with [facility] in order to get medicaid. Hopefully with mother here, too, she will be able to get patient to follow through. Treatment Plan from 06/16/2014 9:57 AM:* Care Management Note : Blood glucose continues to be elevated per MayN. adjust insulin. care management to follow. Lovenox. IV Protonix. Treatment Plan from 06/15/2014 1:30 PM:* Care Management Note : Visited with patient. Patient has been living with his mother and hopes to return, but not sure if he will have him back because of his drug use. Patient states he has been through treatment several times - unsuccessfully - and states he was using during treatment! Patient blaming everyone else for not being able to get a job , his drug use, inability to get insulin, etc. States he's "done" and wishes he 'd never come to hospital! No one wants to help him! States if he can't go back home, he'll be on the streets but "it's not the first time!" Patient really not wanting to accept responsibility and basically indicated he was tired of everyone talking to him! Treatment Plan from 06/14/2014 12:05 PM:* Care Management Note : Patient admitted with hyperglycemia and altered mental status. Blood glucose 464. Bili 2.42. A1C 11.4. WBC 15.6. Nursing documents: Patient is anxious and agitated, with reported paranoia and hallucinations. Psych, Diabetic education, and top distribution executive is consulted. RT. N[place]um. monitor neuro checks every 4 hours. Monitor blood glucose checks. IVF at 150. Precedex drip. Lovenox. IV Protonix. anticipate stay longer than 2 midnights. meets inpatient status. care management to follow. Facesheet indicates no payer source noted. Procedures * Completed , on 02/19/2011 12:00 AM * Completed , on 10/27/2010 12:00 AM * Completed , on 10/22/2010 12:00 AM * Completed , on 10/17/2010 12:00 AM * Completed , on 10/17/2010 12:00 AM * Completed , on 01/18/2009 12:00 AM Immunizations * Influenza, seasonal, injectable (NOVARTIS VACCIN, Lot # [id number]); Administered 02/23/2014 9:20 AM; 0.5 ML=1 DOSE, INTRAMUSCL Hospital Course Hospital Discharge Instructions How to care for yourself at home from 06/16/2014 12:55 PM:* Discharge Activity : Activity as tolerated * Discharge Diet : As before hospitalization * Call your doctor if: : Fever over 101 F or severe chills,Chest pain or other unexplained symptoms,Tingling or numbness develops,A sudden increase or decrease in weight,You have persistent or worsening symptoms,If you have Heart Failure and you gain 3 pounds within 1 week or your symptoms worsen. (Weigh at home tomorrow morning) * Specific Discharge Teaching Instructions provided: : Yes * Discharge on Warfarin : No Allergies, Adverse Reactions, Alerts * Sulfa (Sulfonamide Antibiotics) causes Unknown. * No Latex Allergy. * No IV Contrast Allergy. * No Known Food Allergies. Medication It is the responsibility of the patient or patient welding equipment sales representative to confirm the list of medications with either the patient's personal care provider or the patient's follow-up care provider to ensure the patient has an appropriate list of medications to take at home. Discharge medications New medications* paliperidone (Invega) 6 mg tablet extended release 24hr, Ordered By: RODRIGUEZ SANTOS Directions: 1 tablet oral daily Continued medications* insulin aspart (NovoLOG) 100 unit/mL Solution, Ordered By : RODRIGUEZ SANTOS Directions: 10 unit subcutaneous daily before meals Changed medications* insulin glargine (LanTUS) 100 unit/mL Solution, Ordered By : RODRIGUEZ SANTOS Directions: 20 unit subcutaneous daily at bedtime Stopped medications* hydrOXYzine HCl 50 mg Tablet Directions: 1 tablet oral three times a day PRN ANXIETY * pantoprazole 40 mg tablet,delayed release (DR/EC) Directions: 1 tablet oral daily before breakfast * risperidone (RisPERDal) 1 mg Tablet Directions: 1 tablet oral daily at bedtime
--- OUTSIDE RECORDS SUMMARY | 2016-11-20 13:47 | XMS REPORT ---
Author Author Leo Valdes [facility] Address [address] [place], [place] [id number] Care Team Providers Care Processing Manager Name Role Phone Leo Valdes Unavailable PROBLEMS Type Condition ICD9-CM Code LOW75-ZL Code Onset Dates Condition Status SNOMED Code Problem Diabetes with other specified manifestations, type II or unspecified type, not stated as uncontrolled 250.80 Active 987845997 Problem Unspecified staphylococcus infection in conditions classified elsewhere and of unspecified site 041.10 Active 785456871 Problem Unspecified local infection of skin and subcutaneous tissue 686.9 Active 04541418 Problem DM w/o complication type II E11.9 Active 750997617 Problem Type II diabetes mellitus 250.00 Active 98978436 Problem Diabetes mellitus without mention of complication, type II or unspecified type, uncontrolled 250.02 Active 624186655 Problem Unspecified cellulitis and abscess of finger 681.00 Active 373704449 Problem Polysubstance abuse 305.90 Active 114160689 Problem Acute pharyngitis 462 Active [id number] ALLERGIES Unknown Allergies SOCIAL HISTORY No smoking Hx information available PLAN OF CARE VITAL SIGNS MEDICATIONS Unknown Medications RESULTS Name Result Date Reference Range Hemoglobin A1C 2016-03-26 Hemoglobin A1C 7.8 PROCEDURES No Known procedures IMMUNIZATIONS No Known Immunizations
--- OUTSIDE RECORDS SUMMARY | 2016-11-20 13:47 | XMS REPORT ---
Author Author GENERATED, SYSTEM Organization Unknown Address Unknown Phone Unavailable Care Team Providers Care Gas Compressor Operator Name Role Phone [facility] PP Unavailable Reason For Visit Reason for Visit from 05/20/2014 9:52 AM:* Pt Stated Reason for Adm : "To get help for mental disorders" Reason for Visit from 05/19/2014 3:35 PM:* Pt Stated Reason for Adm : "To get help for mental disorders" Chief Complaint BIPOLAR DEPRESSION Social History Social History from 05/22/2014 2:32 PM:* Tobacco Use? : Current Everyday Smoker Social History from 05/20/2014 9:52 AM:* Tobacco Use? : Current Everyday Smoker Social History from 05/19/2014 3:35 PM:* Tobacco Use? : Current Everyday Smoker Functional Status Functional Status from 05/22/2014 9:06 AM:* LOC : Alert * Oriented To : Person,Place,Time,Event * Weight Bearing Status : Full * Assist Level : Independent * # Assists : Independent Functional Status from 05/21/2014 8:25 PM:* LOC : Alert * Oriented To : Person,Place,Time,Event * Weight Bearing Status : Full * Assist Level : Independent * # Assists : Independent Functional Status from 05/21/2014 9:00 AM:* LOC : Alert * Oriented To : Person,Place,Time,Event * Weight Bearing Status : Full * Assist Level : Independent * # Assists : Independent Functional Status from 05/20/2014 8:00 PM:* LOC : Alert * Oriented To : Person,Place,Time,Event * Weight Bearing Status : Full * Assist Level : Independent * # Assists : Independent Functional Status from 05/20/2014 9:21 AM:* LOC : Alert * Oriented To : Person,Place,Time,Event * Weight Bearing Status : Full * Assist Level : Independent * # Assists : Independent Functional Status from 05/19/2014 8:01 PM:* LOC : Alert * Oriented To : Person,Place,Time,Event * Weight Bearing Status : Full * Assist Level : Independent * # Assists : Independent Functional Status from 05/19/2014 3:35 PM:* LOC : Alert * Oriented To : Person,Place,Time,Event * Weight Bearing Status : Full * Assist Level : Independent * # Assists : Independent Vital Signs Hospital Vital Signs from 05/22/2014 6:09 AM:* Height : 5/9 ft,in * Temperature : 98 F * Pulse : 69 * Respirations : 18 * BP : 106/61 Hospital Vital Signs from 05/22/2014 12:05 AM:* Weight : 68.7/ kg * Height : 5/9 ft,in Hospital Vital Signs from 05/21/2014 6:07 AM:* Height : 5/9 ft,in * Temperature : 98.3 F * Pulse : 73 * Respirations : 18 * BP : 121/70 Hospital Vital Signs from 05/20/2014 8:44 AM:* Weight : 65.8/ kg * Height : 5/9 ft,in Hospital Vital Signs from 05/20/2014 5:22 AM:* Weight : 65.8/ kg * Height : 5/9 ft,in * Temperature : 97.6 F * Pulse : 65 * Respirations : 20 * BP : 132/78 Hospital Vital Signs from 05/19/2014 10:23 PM:* Height : 5/9 ft,in * Temperature : 98.1 F * Pulse : 57 * Respirations : 20 * BP : 116/67 Hospital Vital Signs from 05/19/2014 3:35 PM:* Weight : 65.7/ kg * Height : 5/9 ft,in Hospital Vital Signs from 05/19/2014 2:45 PM:* Weight : 65.7/ kg * Height : 5/9 ft,in * Temperature : 97.6 F * Pulse : 73 * Respirations : 18 * BP : 126/68 Results Chemistry from 05/20/2014 5:18 AMGLUCOSE (FASTING) 222 MG/DL H (65-99 MG/DL) Serology from 05/20/2014 5:18 AMHIV 1/ RAPID SCREEN NON-REACTIVE (NON-REACTIVE ) Problems Encounter Diagnosis No relevant problems exist. Additional Problems * Bipolar Affective Disorder, Current [...] No relevant problems exist. Plan of Care Follow-up Appointments from 05/22/2014 2:32 PM:* #1 Office appointment: : Walk- In Intake: -Sunday 8:00am-3:30pm and 10:00am-3:30pm * Address # 1 : [facility]: [address], [address], [place], [place] - * #2 Office appointment: : DONICK: Bring ID and letter from mom stating unemployment, signed and dated * #2 Date/Time : 06/11/2014 10:15 AM * Address # 2 : [facility], [address], [place], [place] Procedures * Completed , on 02/19/2011 12:00 AM * Completed , on 10/27/2010 12:00 AM * Completed , on 10/22/2010 12:00 AM * Completed , on 10/22/2010 12:00 AM * Completed , on 10/22/2010 12:00 AM * Completed , on 10/17/2010 12:00 AM * Completed , on 10/17/2010 12:00 AM * Completed , on 01/18/2009 12:00 AM Immunizations No immunizations administered or ordered. Hospital Course Hospital Discharge Instructions How to care for yourself at home from 05/22/2014 2:32 PM:* Discharge Activity : Activity as tolerated,May Shower * Discharge Diet : As before hospitalization [...] the responsibility of the patient or patient footwear sales representative to confirm the list of medications with either the patient's personal care provider or the patient's follow-up care provider to ensure the patient has an appropriate list of medications to take at home. Discharge medications New medications* hydrOXYzine HCl 50 mg Tablet, Ordered By: ELMER CALIXTO PAC Directions: 1 tablet oral three times a day PRN ANXIETY * risperidone (RisPERDal) 1 mg Tablet, Ordered By: ELMER CALIXTO PAC Directions: 1 tablet oral daily at bedtime Continued medications* pantoprazole 40 mg tablet,delayed release (DR/EC), Ordered By: ELMER CALIXTO, PAC Directions: 1 tablet oral daily before breakfast * insulin glargine (LanTUS) 100 unit/mL Solution, Ordered By: NATHANIEL ABURTO Directions: 10 unit subcutaneous daily at bedtime Changed medications* insulin aspart (NovoLOG) 100 unit/mL Solution, Ordered By: ELMER CALIXTO, PAC Directions: 10 unit subcutaneous daily before meals Stopped medications* doxycycline monohydrate 100 mg Capsule Directions: 1 capsule oral twice a day Additional Instructions: TAKE WITH A FULL GLASS OF WATER. x 7 days
--- OUTSIDE RECORDS SUMMARY | 2016-11-20 13:48 | XMS REPORT ---
Author Author GENERATED, SYSTEM Organization Unknown Address Unknown Phone Unavailable Care Team Providers Care Track Maintainer Name Role Phone [facility] PP Unavailable Reason For Visit Chief Complaint OTALGIA NOS,RIGHT EAR PAIN,OTITIS MEDIA NOS,DM2/NOS UNCOMP NSU,TOBACCO USE DISORDER,LONG-TERM INSULIN USE Social History Functional Status Vital Signs Results Problems Encounter Diagnosis No relevant problems exist. [...] or ordered. Hospital Course Hospital Discharge Instructions Allergies, Adverse Reactions, Alerts * Sulfa (Sulfonamide Antibiotics) causes Unknown. * Latex Allergy has not been assessed. * IV Contrast Allergy has not been assessed. * No Known Food Allergies. Medication Medication reconciliation has not been performed.
--- OUTSIDE RECORDS SUMMARY | 2016-11-20 13:48 | XMS REPORT ---
Author Author GENERATED, SYSTEM Organization Unknown Address Unknown Phone Unavailable Care Team Providers Care Field Artillery Fire Control Man Name Role Phone UNASSIGNED DOCTOR , DOCTOR PP Reason For Visit Reason for Visit from 05/02/2016 12:23 PM:* Pt Stated Reason for Adm : Pt states shelly was brought in by EMS because he has AID Reason for Visit from 05/01/2016 11:02 AM:* Pt Stated Reason for Adm : Pt states shelly was brought in by EMS because he has AID Reason for Visit from 04/29/2016 7:44 AM:* Pt Stated Reason for Adm : Pt states shelly was brought in by EMS because he has AID Chief Complaint UNSPEC SCHIZOPHRENIA OR OTHER PSYCHOTIC Social History Social History from 05/02/2016 12:23 PM:* Tobacco Use? : Unknown if Ever Smoked Social History from 05/01/2016 11:02 AM:* Tobacco Use? : Unknown if Ever Smoked Social History from 04/29/2016 7:44 AM:* Tobacco Use? : Unknown if Ever Smoked Functional Status Functional Status from 05/02/2016 9:06 AM:* LOC : Alert * Oriented To : Person,Place,Time,Event * Weight Bearing Status : Full * Assist Level : Independent * # Assists : Independent Functional Status from 05/01/2016 8:00 PM:* LOC : Alert * Oriented To : Person,Place,Time,Event * Weight Bearing Status : Full * Assist Level : Independent * # Assists : Independent Functional Status from 05/01/2016 8:04 AM:* LOC : Alert * Oriented To : Person,Place,Time,Event * Weight Bearing Status : Full * Assist Level : Independent * # Assists : Independent Functional Status from 04/30/2016 7:45 PM:* LOC : Alert * LOC : Alert * Oriented To : Person,Place,Time * Oriented To : Person,Place,Time,Event * Weight Bearing Status : Full * Assist Level : Independent * # Assists : Independent Functional Status from 04/30/2016 7:00 PM:* LOC : Alert * Oriented To : Person,Place,Time Functional Status from 04/30/2016 9:30 AM:* LOC : Drowsy * Oriented To : Person,Place * Weight Bearing Status : Full * Assist Level : Independent * # Assists : Independent Functional Status from 04/29/2016 9:30 PM:* LOC : Alert * Oriented To : Person,Place,Time,Event * Weight Bearing Status : Full * Assist Level : Independent * # Assists : Independent Functional Status from 04/29/2016 10:53 AM:* LOC : Irritable * Oriented To : Person * Weight Bearing Status : Full * Assist Level : Independent * # Assists : Independent Functional Status from 04/29/2016 7:44 AM:* LOC : Alert * Oriented To : Person,Place * Weight Bearing Status : Full * Assist Level : Independent * # Assists : Independent Vital Signs Hospital Vital Signs from 05/02/2016 6:22 AM:* Height : 5/9 ft,in * Temperature : 98.0 F * Pulse : 67 * Respirations : 18 * BP : 113/67 Hospital Vital Signs from 05/01/2016 8:36 AM:* Height : 5/9 ft,in Hospital Vital Signs from 05/01/2016 6:26 AM:* Height : 5/9 ft,in * Temperature : 97.3 F * Pulse : 81 * Respirations : 16 * BP : 103/71 Hospital Vital Signs from 04/30/2016 7:45 PM:* Height : 5/9 ft,in * Temperature : 97.9 F * Pulse : 99 * Respirations : 20 * BP : 99/67 Hospital Vital Signs from 04/30/2016 7:03 PM:* Height : 5/9 ft,in * Respirations : 16 * BP : 105/66 Hospital Vital Signs from 04/30/2016 6:36 AM:* Height : 5/9 ft,in * Temperature : 97.7 F * Pulse : 74 * Respirations : 16 * BP : 98/55 Hospital Vital Signs from 04/29/2016 9:07 PM:* Height : 5/9 ft,in * Temperature : 98.6 F * Pulse : 90 * Respirations : 20 * BP : 121/88 Hospital Vital Signs from 04/29/2016 7:44 AM:* Weight : 64.5/ kg * Height : 5/9 ft,in Hospital Vital Signs from 04/29/2016 5:14 AM:* Weight : 64.5/ kg * Height : 5/9 ft,in * Temperature : 98.7 F * Pulse : 123 * Respirations : 20 * BP : 124/76 Results Chemistry from 04/30/2016 6:42 AMGLUCOSE (FASTING) 182 MG/DL H (65-99 MG/DL) Chemistry from 04/29/2016 9:06 AMVALPROIC ACID <3 MCG/ML L (50-100 MCG/ML) Problems Encounter Diagnosis No relevant problems exist. Additional Problems * Acute Pain Comment:Problem resolved [...] exist. Plan of Care Follow-up Appointments from 05/02/2016 12:23 PM:* #1 Office appointment: : Intake M-F 8am-3:30pm [id number]-5:30pm * Address # 1 : [facility]: [address] [facility] [address], [place] Follow-up Appointments from 05/02/2016 11:39 AM:* #1 Office appointment: : Intake M-F 8am-3:30pm [id number]:30pm * Address # 1 : [facility]: [address], [place] - Follow-up Appointments from 05/02/2016 10:07 AM:* #1 Office appointment: : Intake - 8am-3:30pm [id number]-4:30pm * Address # 1 : [facility]: [address] [facility] [address], [place] - Procedures * Completed , on 02/19/2011 12:00 AM * Completed , on 10/27/2010 12:00 AM * Completed , on 10/22/2010 12:00 AM * Completed , on 10/17/2010 12:00 AM * Completed , on 10/17/2010 12:00 AM * Completed , on 01/18/2009 12:00 AM Immunizations * Influenza, seasonal, injectable (NOVARTIS VACCIN, Lot # [id number]); Administered 02/23/2014 9:20 AM; 0.5 ML=1 DOSE, INTRAMUSCL Hospital Course Hospital Discharge Instructions How to care for yourself at home from 05/02/2016 12:23 PM:* Discharge Activity : Activity as tolerated,May Shower * Discharge Diet : As before hospitalization,Diet as tolerated * Call your doctor if: : Fever [...] the responsibility of the patient or patient fuels sales representative to confirm the list of medications with either the patient's personal care provider or the patient's follow-up care provider to ensure the patient has an appropriate list of medications to take at home. Discharge medications New medications* nicotine (polacrilex) (Nicorelief) 2 mg Gum, Ordered By: NATHANIEL ABURTO Directions: 1 gum oral daily for SMOKING CESSATION Additional Instructions: DO NOT GIVE IF PATIENT UNDER AGE 18 OR . * OLANZapine (ZyPREXA) 10 mg Tablet, Ordered By: NATHANIEL ABURTO Directions: 1 tablet oral daily at bedtime for mood stabilization Changed medications* divalproex (Depakote) 500 mg tablet,delayed release (DR/EC) , Ordered By: NATHANIEL ABURTO Directions: 1 tablet oral twice a day for mood stabilization * insulin aspart (NovoLOG) 100 unit/mL Solution, Ordered By: NATHANIEL ABURTO Directions: 2 unit subcutaneous three times a day with or after meal for for diabetes management Additional Instructions: 2 units with breakfast and dinner, 3 units with lunch Stopped medications* QUEtiapine 25 mg Tablet Directions: 1 tablet oral at bedtime for insomnia every morning and at bedtime for mood stabilization * buPROPion HCl (Wellbutrin XL) 150 mg Tablet Extended Release 24 hr Directions: 1 tablet oral daily every morning * nitrofurantoin monohyd/m-cryst (MacroBID) 100 mg Capsule Directions: oral twice a day during meal
--- OUTSIDE RECORDS SUMMARY | 2016-11-20 13:48 | XMS REPORT ---
Author Author GENERATED, SYSTEM Organization Unknown Address Unknown Phone Unavailable Care Team Providers Care Manager People Name Role Phone [facility] PP Unavailable Reason For Visit Chief Complaint VOMITING Social History Functional Status Vital Signs Results [...] Influenza, seasonal, injectable (NOVARTIS VACCIN, Lot # [id number]); Administered 02/23/2014 9:20 AM; 0.5 ML=1 DOSE, INTRAMUSCL Hospital Course Hospital Discharge Instructions Allergies, Adverse Reactions, Alerts * Sulfa (Sulfonamide Antibiotics) causes Unknown. * Latex Allergy has not been assessed. * IV Contrast Allergy has not been assessed. * No Known Food Allergies. Medication Medication reconciliation has not been performed.
--- OUTSIDE RECORDS SUMMARY | 2016-11-20 13:48 | XMS REPORT ---
Author Author GENERATED, SYSTEM Organization Unknown Address Unknown Phone Unavailable Care Team Providers Care Manifest/Order Organizer Print Orders Name Role Phone [facility] PP Unavailable Reason For Visit Chief Complaint VOMITING, STOMACH PAINS, CRAMPS Social History Functional Status Vital Signs Results [...] Influenza, seasonal, injectable (NOVARTIS VACCIN, Lot # [id number]); Administered 02/23/2014 9:20 AM; 0.5 ML=1 DOSE, INTRAMUSCL Hospital Course Hospital Discharge Instructions Allergies, Adverse Reactions, Alerts * Sulfa (Sulfonamide Antibiotics) causes Unknown. * Latex Allergy has not been assessed. * IV Contrast Allergy has not been assessed. * No Known Food Allergies. Medication Medication reconciliation has not been performed.
--- OUTSIDE RECORDS SUMMARY | 2016-11-20 13:48 | XMS REPORT ---
Author Author GENERATED, SYSTEM Organization Unknown Address Unknown Phone Unavailable Care Team Providers Care Technical Director Name Role Phone [facility] PP Unavailable Reason For Visit Chief Complaint TESTICULAR PAIN Social History Functional Status Vital Signs Results Chemistry from 03/26/2016 11:10 AM*COCAINE NEGATIVE (NEG <150 ) *PCP NEGATIVE (NEG <25 ) *CANNABINOIDS POSITIVE A (NEG <50 ) *BENZODIAZEINE NEGATIVE (NEG <200 ) *AMPHETAMINE NEGATIVE (NEG <500 ) *BARBITURATES NEGATIVE (NEG <200 ) *OPIATES NEGATIVE (NEG <300 ) Chemistry from 03/26/2016 10:35 AMSODIUM 135 MMOL/L L (136-145 MMOL/L) POTASSIUM 4.3 MMOL/L (3.5-5.1 MMOL/L) CHLORIDE 100 MMOL/L (98-107 MMOL/L) TCO2 28.5 MMOL/L (21.0-32.0 MMOL/L) *ANION GAP 6.5 MMOL/L L (8.0-16.0 MMOL/L) BUN 15 MG/DL (7-18 MG/DL) CREATININE 1.08 MG/DL (0.70-1.30 MG/DL) *BUN/CREATININE RATIO 13.9 (9.1-17.0 ) GLUCOSE 315 MG/DL H (65-99 MG/DL) *GFR EST NON AFR UGANDAN >90 ML/MIN *GFR EST AFR AMER >90 ML/MIN CALCIUM 8.4 MG/DL L (8.5-10.1 MG/DL) BILIRUBIN TOTAL 0.80 MG/DL (0.20-1.00 MG/DL) TOTAL PROTEIN 7.0 GM/DL (6.4-8.2 GM/DL) ALBUMIN 2.9 GM/DL L (3.4-5.0 GM/DL) *GLOBULIN 4.1 GM/DL H (2.3-3.5 GM/DL) *A/G RATIO 0.7 MG/DL L (1.5-2.2 MG/DL) ALK PHOS 73 U/L (46-116 U/L) ALT (SGPT) 23 U/L (14-59 U/L) AST (SGOT) 14 U/L L (15-37 U/L) Hematology from 03/26/2016 10:35 AMWBC 19.4 X10e3/UL H (3.6-11.2 X10e3/UL) RBC 4.32 X10e6/UL (4.06-5.63 X10e6/UL) HEMOGLOBIN 13.3 G/DL (12.5-16.3 G/DL) HEMATOCRIT 40.2 % (36.7-47.1 %) *MCV 92.9 FL (80.0-100.0 FL) *MCH 30.7 PG (27.0-33.0 PG) *MCHC 33.0 G/DL (32.0-36.0 G/DL) *RDW 14.0 % (12.3-17.0 %) *RDWSD 45.9 (37.1-47.8 ) PLATELET 245 X10e3/UL (159-386 X10e3/UL) *MPV 8.4 FL (7.4-10.4 FL) *MANUAL DIFF PERFORMED SEGS 90.0 % *BANDS 3.0 % *LYMPHOCYTES 5.0 % *MONOCYTES 1.0 % *EOSINOPHILS 0.0 % *BASOPHILS 1.0 % *ABSOLUTE NEUTROPHILS 18.04 X10e3/UL H (1.80-7.80 X10e3/UL) *ABSOLUTE LYMPHOCYTES 0.97 X10e3/UL L (1.00-3.00 X10e3/UL) *ABSOLUTE MONOCYTES 0.19 X10e3/UL L (0.30-1.00 X10e3/UL) *ABSOLUTE EOSINOPHILS 0.00 X10e3/UL (0.00-0.50 X10e3/UL) *ABSOLUTE BASOPHILS 0.19 X10e3/UL (0.00-0.20 X10e3/UL) Urinalysis from 03/26/2016 11:45 AM*URINE COLOR YELLOW (STRAW/YELL/DK YELL ) *URINE APPEARANCE CLOUDY A (CLEAR ) URINE PH 6.0 (5.0-8.0 ) URINE SPECIFIC GRAVITY 1.025 (<=1.005->=1.030 ) *URINE GLUCOSE >1000 MG/DL A (NEGATIVE MG/DL) *URINE BILIRUBIN NEGATIVE (NEGATIVE ) *URINE KETONES NEGATIVE MG/DL (NEGATIVE MG/DL) *URINE BLOOD LARGE A (NEGATIVE ) *URINE PROTEIN 100 MG/DL A (NEGATIVE MG/DL) *URINE UROBILINOGEN 0.2 EU/DL (0.2-1.0 EU/DL) *URINE NITRITES NEGATIVE (NEGATIVE ) *URINE LEUKOCYTES TRACE A (NEGATIVE ) *MICROSCOPIC EXAM PERFORMED PERFORMED *WBC URINE 1-5 /HPF (0-5 /HPF) *RBC URINE PACKED FIELD /HPF A (0-1 /HPF) *SQUAMOUS EP. CELLS FEW /LPF (NEG-FEW /LPF) *BACTERIA NONE SEEN /HPF (NEGATIVE /HPF) Microbiology from 03/26/2016 11:45 AM* CULTURE URINE (Preliminary Result) Specimen Number: [id number] Sample Collection Date/Time: 03/26/2016 11:45 AM Specimen Source: Urine Clean Catch CULTURE URINE: Gram-negative bacillus >100,000 cfu/ml ID and Susceptibility to follow Reference Lab from 03/26/2016 11:10 AM* Status: Preliminary Result *SOURCE Specimen Number: [id number] Sample Collection Date/Time: 03/26/2016 11:10 AM Specimen Source: *SOURCE: Urine Problems Encounter Diagnosis No relevant problems exist. Additional Problems * Acute Pain Status:Active. * Anxiety Comment:Problem resolved by [facility] Workflow upon Discharge, Status: Resolved. * Bipolar Affective Disorder, Current Episode Depression Comment:Problem resolved by [facility] Workflow upon Discharge, Status:Resolved. * Bipolar Disorder Comment:Problem resolved by [facility] Workflow upon Discharge, Status:Resolved. * Blood Glucose Abnormal Comment:Problem resolved by [facility] Workflow upon Discharge, Status:Resolved. * Blood Glucose Abnormal Status:Active. * Delusional Disorder Comment:Problem resolved by [facility] [...] Workflow upon Discharge, Status:Resolved. * Infection Risk Status:Active. * Mood Disorder Comment:Problem resolved by [facility] [...] Influenza, seasonal, injectable (NOVARTIS VACCIN, Lot # [id number]); Administered 02/23/2014 9:20 AM; 0.5 ML=1 DOSE, INTRAMUSCL Hospital Course Hospital Discharge Instructions Allergies, Adverse Reactions, Alerts * Sulfa (Sulfonamide Antibiotics) causes Hives. * doxycycline causes Severe Nausea. * Latex Allergy has not been assessed. * IV Contrast Allergy has not been assessed. * No Known Food Allergies. Medication Medication reconciliation has not been performed.
--- OUTSIDE RECORDS SUMMARY | 2016-11-20 13:48 | XMS REPORT ---
Author Author GENERATED, SYSTEM Organization Unknown Address Unknown Phone Unavailable Care Team Providers Care Cutting Machine Offbearer Name Role Phone [facility] PP Unavailable Reason For Visit Chief Complaint CRISIS SUICIAL THOUGHTS Social History Functional Status Vital Signs Results Chemistry from 06/08/2014 10:50 PMCOCAINE NEGATIVE (NEG <150 ) PCP NEGATIVE (NEG <25 ) OXYCODONE NEGATIVE (NEG <100 ) *PROPOXYPHENE (NORPROPOXYPHENE) (LAB) NEGATIVE (NEG <300 ) CANNABINOIDS NEGATIVE (NEG <50 ) BENZODIAZEINE NEGATIVE (NEG <150 ) AMPHETAMINE NEGATIVE (NEG <500 ) BARBITURATES NEGATIVE (NEG <200 ) METHAMPHETAMINES NEGATIVE (NEG <500 ) METHADONE (UR) NEGATIVE (NEG <200 ) OPIATES NEGATIVE (NEG <100 ) TRICYCLICS NEGATIVE (NEG <300 ) Chemistry from 06/08/2014 10:10 PMSODIUM 134 MMOL/L L (136-145 MMOL/L) POTASSIUM 3.4 MMOL/L L (3.5-5.1 MMOL/L) CHLORIDE 96 MMOL/L L (98-107 MMOL/L) TCO2 34.6 MMOL/L H (21.0-32.0 MMOL/L) ANION GAP 3.4 MMOL/L L (8.0-16.0 MMOL/L) BUN 14 MG/DL (7-18 MG/DL) CREATININE 1.07 MG/DL (0.63-1.13 MG/DL) BUN/CREATININE RATIO 13.1 (9.1-17.0 ) GLUCOSE 340 MG/DL H (65-99 MG/DL) GFR EST NON AFR NIGERIAN >90 ML/MIN GFRA EST AFR AMER >90 ML/MIN CALCIUM 9.2 MG/DL (8.5-10.1 MG/DL) BILIRUBIN TOTAL 0.87 MG/DL (0.20-1.00 MG/DL) TOTAL PROTEIN 6.9 GM/DL (6.4-8.2 GM/DL) ALBUMIN 3.5 GM/DL (3.4-5.0 GM/DL) GLOBULIN 3.4 GM/DL (2.3-3.5 GM/DL) A/G RATIO 1.0 MG/DL L (1.5-2.2 MG/DL) ALK PHOS 73 U/L (46-116 U/L) ALT (SGPT) 25 U/L (14-59 U/L) AST (SGOT) 22 U/L (15-37 U/L) LIPASE 266 U/L (73-393 U/L) ALCOHOL 0.006 GM/DL ACETAMINOPHEN <2 MCG/ML L (10-30 MCG/ML) SALICYLATE <0.2 MG/DL L (2.8-20.0 MG/DL) Hematology from 06/08/2014 10:10 PMWBC 8.1 X10e3/UL (3.6-11.2 X10e3/UL) RBC 4.51 X10e6/UL (4.06-5.63 X10e6/UL) HEMOGLOBIN 14.2 G/DL (12.5-16.3 G/DL) HEMATOCRIT 40.8 % (36.7-47.1 %) MCV 90.3 FL (80.0-100.0 FL) MCH 31.4 PG (27.0-33.0 PG) MCHC 34.8 G/DL (32.0-36.0 G/DL) RDW 12.8 % (12.3-17.0 %) RDWSD 39.8 (37.1-47.8 ) PLATELET 205 X10e3/UL (159-386 X10e3/UL) MPV 8.8 FL (7.4-10.4 FL) AUTOMATED DIFF PERFORMED SEGS 50.8 % LYMPHOCYTES 38.9 % MONOCYTES 5.5 % EOSINOPHILS 4.3 % BASOPHILS 0.5 % ABSOLUTE NEUTROPHILS 4.10 X10e3/UL (1.80-7.80 X10e3/UL) ABSOLUTE LYMPHOCYTES 3.10 X10e3/UL H (1.00-3.00 X10e3/UL) ABSOLUTE MONOCYTES 0.40 X10e3/UL (0.30-1.00 X10e3/UL) ABSOLUTE EOSINOPHILS 0.30 X10e3/UL (0.00-0.50 X10e3/UL) ABSOLUTE BASOPHILS 0.00 X10e3/UL (0.00-0.20 X10e3/UL) Problems Encounter Diagnosis No relevant problems exist. [...] Influenza, seasonal, injectable (NOVARTIS VACCIN, Lot # [id number]); Administered 02/23/2014 9:20 AM; 0.5 ML=1 DOSE, INTRAMUSCL Hospital Course Hospital Discharge Instructions Allergies, Adverse Reactions, Alerts * Sulfa (Sulfonamide Antibiotics) causes Unknown. * Latex Allergy has not been assessed. * IV Contrast Allergy has not been assessed. * No Known Food Allergies. Medication Medication reconciliation has not been performed.
--- OUTSIDE RECORDS SUMMARY | 2016-11-20 13:48 | XMS REPORT ---
Author Author GENERATED, SYSTEM Organization Unknown Address Unknown Phone Unavailable Care Team Providers Care Procedures Tech Name Role Phone UNASSIGNED DOCTOR , DOCTOR PP Reason For Visit Chief Complaint DRUG ABUSE Social History Functional Status Vital Signs Results Problems Encounter Diagnosis No relevant problems exist. Additional Problems * Acute Pain Comment:Problem resolved by Soarian Workflow upon Discharge, Status :Resolved. * Alcohol Abuse Comment:Problem resolved by Soarian Workflow upon Discharge, Status:Resolved. * Altered Mental Status Comment:Problem resolved by Soarian Workflow upon Discharge, Status:Resolved. * Altered Mental Status Comment:Problem resolved by Soarian Workflow upon Discharge, Status:Resolved. * Amphetamine Abuse Comment:Problem resolved by Soarian Workflow upon Discharge , Status:Resolved. * Anxiety Comment:Problem resolved by Soarian Workflow upon Discharge, Status: Resolved. * Bipolar Affective Disorder, Current Episode Depression Comment:Problem resolved by Soarian Workflow upon Discharge, Status:Resolved. * Bipolar Disorder Comment:Problem resolved by Soarian Workflow upon Discharge, Status:Resolved. * Blood Glucose Abnormal Comment:Problem resolved by Soarian Workflow upon Discharge, Status:Resolved. * Blood Glucose Abnormal Comment:Problem resolved by Soarian Workflow upon Discharge, Status:Resolved. * Cannabis Abuse Comment:Problem resolved by [...] upon Discharge, Rank:3 - Low, Status:Resolved. * Fall Risk Comment:Problem resolved by Soarian Workflow upon Discharge, Status: Resolved. * Feeling Suicidal Comment:Problem resolved by Soarian [...] Influenza, seasonal, injectable (NOVARTIS VACCIN, Lot # [id number]); Administered 02/23/2014 9:20 AM; 0.5 ML=1 DOSE, INTRAMUSCL Hospital Course Hospital Discharge Instructions Allergies, Adverse Reactions, Alerts * Bactrim causes Vomiting. * Sulfa (Sulfonamide Antibiotics) causes Hives. * doxycycline causes Severe Nausea. * Latex Allergy has not been assessed. * IV Contrast Allergy has not been assessed. * No Known Food Allergies. Medication Medication reconciliation has not been performed.
--- OUTSIDE RECORDS SUMMARY | 2016-11-20 13:48 | XMS REPORT ---
Author Author GENERATED, SYSTEM Organization Unknown Address Unknown Phone Unavailable Care Team Providers Care Home Day Care Provider Name Role Phone UNASSIGNED DOCTOR , DOCTOR [...] #1 Office appointment: : Intake M-F 8am-3:30pm [id number]-4:30pm * Address # 1 : [facility]: [address] [facility] [address], [place] Follow-up Appointments from 05/02/2016 11:39 AM:* #1 Office appointment: : Intake M-F 8am-3:30pm [id number]:30pm * Address # 1 : [facility]: [address] [place] [address], [place] Follow-up Appointments from 05/02/2016 10:07 AM:* #1 Office appointment: : Intake M- 8am-3:30pm [id number]-4:30pm * Address # 1 : [facility]: [address] [facility] [address], [place] - Procedures * Completed , on 02/19/2011 12:00 AM * Completed , on 10/27/2010 12:00 AM * Completed , on 10/22/2010 12:00 AM * Completed , on 10/17/2010 12:00 AM * Completed , on 10/17/2010 12:00 AM * Completed , on 01/18/2009 12:00 AM Immunizations * Influenza, seasonal, injectable (NOVARTIS VACCIN, Lot # [id number]); Administered 02/23/2014 9:20 AM; 0.5 ML=1 DOSE, [...] the responsibility of the patient or patient business services representative to confirm the list of medications [...]
--- OUTSIDE RECORDS SUMMARY | 2016-11-20 13:49 | XMS REPORT ---
Author Author GENERATED, SYSTEM Organization Unknown Address Unknown Phone Unavailable Care Team Providers Care Lead Auditor Name Role Phone UNASSIGNED DOCTOR , DOCTOR PP Reason For Visit Chief Complaint ALTERED LEVEL OF CONSCIOUSNESS Social History Functional Status Vital Signs Results [...] exist. Plan of Care Procedures * Completed Procedure Code: [id number] Procedure Name: not valued, on 05/04/2016 12 :00 AM * Completed , on 02/19/2011 12:00 AM * Completed , on 10/27/2010 12:00 AM * Completed , on 10/22/2010 12:00 AM * Completed , on 10/17/2010 12:00 AM * Completed , on 10/17/2010 12:00 AM * Completed , on 01/18/2009 12:00 AM Immunizations * Influenza, seasonal, injectable (NOVARTIS VACCIN, Lot # [id number]); Administered 02/23/2014 9:20 AM; 0.5 ML=1 DOSE, [...]
--- OUTSIDE RECORDS SUMMARY | 2016-11-20 13:49 | XMS REPORT ---
Author Author GENERATED, SYSTEM Organization Unknown Address Unknown Phone Unavailable Care Team Providers Care Forestry Engineer Name Role Phone UNASSIGNED DOCTOR , DOCTOR PP Reason For Visit Reason for Visit from 05/08/2016 12:10 PM:* Pt Stated Reason for Adm : In ICU pt exhibited paranoid, delusional and psychotic behavior Reason for Visit from 05/08/2016 11:50 AM:* Pt Stated Reason for Adm : In ICU pt exhibited paranoid, delusional and psychotic behavior Reason for Visit from 05/05/2016 12:43 PM:* Pt Stated Reason for Adm : In ICU pt exhibited paranoid, delusional and psychotic behavior Chief Complaint UNSPECIFIED SCHIZOPHRENIA Social History Social History from 05/08/2016 12:10 PM:* Tobacco Use? : Current Everyday Smoker Social History from 05/08/2016 11:50 AM:* Tobacco Use? : Current Everyday Smoker Social History from 05/05/2016 12:43 PM:* Tobacco Use? : Current Everyday Smoker Functional Status Functional Status from 05/08/2016 9:10 AM:* LOC : Alert * Oriented To : Person,Place,Time,Event * Weight Bearing Status : Full * Assist Level : Independent * # Assists : Independent Functional Status from 05/07/2016 8:16 PM:* LOC : Alert * Oriented To : Person,Place,Time,Event * Weight Bearing Status : Full * Assist Level : Independent * # Assists : Independent Functional Status from 05/07/2016 1:15 PM:* LOC : Alert * Oriented To : Person,Place,Time,Event * Weight Bearing Status : Full * Assist Level : Independent * # Assists : Independent Functional Status from 05/06/2016 8:10 PM:* LOC : Alert * Oriented To : Person,Place,Time,Event * Weight Bearing Status : Full * Assist Level : Independent * # Assists : Independent Functional Status from 05/06/2016 10:34 AM:* LOC : Drowsy * Oriented To : Person,Place,Time,Event * Weight Bearing Status : Full * Assist Level : Independent * # Assists : Independent Functional Status from 05/05/2016 7:53 PM:* LOC : Alert * Oriented To : Person,Place,Time,Event * Weight Bearing Status : Full * Assist Level : Independent * # Assists : Independent Functional Status from 05/05/2016 12:43 PM:* LOC : Alert * Oriented To : Person,Place,Time,Event * Weight Bearing Status : Full * Assist Level : Independent * # Assists : Independent Vital Signs Hospital Vital Signs from 05/08/2016 8:14 AM:* Height : 5/9 ft,in Hospital Vital Signs from 05/08/2016 6:40 AM:* Height : 5/9 ft,in * Temperature : 98.2 F * Pulse : 75 * Respirations : 20 * BP : 115/69 Hospital Vital Signs from 05/07/2016 6:19 AM:* Height : 5/9 ft,in * Temperature : 97.4 F * Pulse : 77 * Respirations : 16 * BP : 109/66 Hospital Vital Signs from 05/06/2016 5:55 AM:* Height : 5/9 ft,in * Temperature : 97.8 F * Pulse : 85 * Respirations : 18 * BP : 101/68 Hospital Vital Signs from 05/05/2016 9:45 PM:* Height : 5/9 ft,in * Temperature : 99.2 F * Pulse : 90 * Respirations : 20 * BP : 132/82 Hospital Vital Signs from 05/05/2016 5:52 PM:* Height : 5/9 ft,in * Temperature : 100.6 F * Pulse : 113 * Respirations : 18 * BP : 115/90 Hospital Vital Signs from 05/05/2016 12:52 PM:* Height : 5/9 ft,in * Temperature : 100.1 F * Pulse : 129 * Respirations : 18 * BP : 134/89 Hospital Vital Signs from 05/05/2016 12:43 PM:* Weight : 66.9/ kg * Height : 5/9 ft,in Results Chemistry from 05/06/2016 6:19 AMGLUCOSE (FASTING) 192 MG/DL H (65-99 MG/DL) CHOLESTEROL 178 MG/DL (50-199 MG/DL) TRIGLYCERIDES 100 MG/DL (0-149 MG/DL) HDL CHOLESTEROL 68 MG/DL H (40-60 MG/DL) *LDL (CALCULATED) CHOL 90 MG/DL (0-99 MG/DL) Problems Encounter Diagnosis * Altered Mental Status Status:Active. Additional Problems * Acute Pain Comment:Problem [...] upon Discharge, Status:Resolved. Encounters Encounter Diagnosis * Altered Mental Status Status:Active. Plan of Care Follow-up Appointments from 05/08/2016 12:10 PM:* #1 Office appointment: : Walk In Intake -F 8a-330p, 11am-330p * Address # 1 : [facility]: [address], [address], [facility] Follow-up Appointments from 05/08/2016 10:15 AM:* #1 Office appointment: : Walk In Intake -F 8a-330p, 11am-330p * Address # 1 : [facility]: [address], [facility] [address], [facility] Procedures * Completed , on 02/19/2011 12:00 AM * Completed , on 10/27/2010 12:00 AM * Completed , on 10/22/2010 12:00 AM * Completed , on 10/17/2010 12:00 AM * Completed , on 10/17/2010 12:00 AM * Completed , on 01/18/2009 12:00 AM Immunizations * Influenza, seasonal, injectable (NOVARTIS VACCIN, Lot # [id number]); Administered 02/23/2014 9:20 AM; 0.5 ML=1 DOSE, INTRAMUSCL Hospital Course Hospital Discharge Instructions How to care for yourself at home from 05/08/2016 12:10 PM:* Discharge Activity : Activity as tolerated,May Shower * Discharge Diet : Modification as given by physician * Discharge Diet: : Diabetic * Call your doctor if: : Fever over 101 F or severe chills,Chest pain or other unexplained symptoms,Tingling or numbness develops,A sudden increase or decrease in weight,You have persistent or worsening symptoms Allergies, Adverse Reactions, Alerts * Bactrim causes Vomiting. * Sulfa (Sulfonamide Antibiotics) causes Hives. * doxycycline causes Severe Nausea. * No Latex Allergy. * No IV Contrast Allergy. * No Known Food Allergies. Medication It is the responsibility of the patient or patient product support sales representative to confirm the list of medications with either the patient's personal care provider or the patient's follow-up care provider to ensure the patient has an appropriate list of medications to take at home. Discharge medications New medications* insulin aspart (NovoLOG) 100 unit/mL Solution, Ordered By: MEENAKSHI WORRELL Directions: 3 unit subcutaneous three times a day with or after meal Continued medications* divalproex (Depakote) 500 mg tablet,delayed release (DR/ EC), Ordered By: MEENAKSHI WORRELL Directions: 1 tablet oral twice a day for mood stabilization * OLANZapine (ZyPREXA) 10 mg Tablet, Ordered By: MEENAKSHI WORRELL Directions: 1 tablet oral daily at bedtime for mood stabilization Stopped medications* None
--- OUTSIDE RECORDS SUMMARY | 2016-11-20 13:49 | XMS REPORT ---
Author Author GENERATED, SYSTEM Organization Unknown Address Unknown Phone Unavailable Care Team Providers Care River Transportation Worker Name Role Phone UNASSIGNED DOCTOR , DOCTOR [...] Independent Vital Signs Hospital Vital Signs from 04/20/2016 10:37 AM:* Height : 5/9 ft,in * Temperature : 98.1 F * Pulse : 65 * Respirations : 18 * BP : 113/75 Hospital Vital Signs from 04/19/2016 6:36 AM:* [...] H (65-99 MG/DL) *GFR EST NON AFR FILIPINO >90 ML/MIN *GFR EST AFR AMER >90 ML/MIN CALCIUM 8.4 MG/DL L (8.5-10.1 MG/DL) ALBUMIN 2.7 GM/DL L (3.4-5.0 GM/DL) PHOSPHORUS 2.9 MG/DL (2.6-4.7 MG/DL) CK 955 U/L H (39-308 U/L) Urinalysis from 04/18/2016 2:40 PM* Status: Final Result URINALYSIS Specimen Number: [id number] Sample Collection Date/Time: 04/18/2016 2:40 PM Specimen [...] 04/18/2016 2:40 PM* CULTURE URINE Specimen Number: [id number] Sample Collection Date/Time: 04/18/2016 2:40 PM Specimen [...] 10:32 AM:* #1 Office appointment: : Per [facility] Procedures * Completed , on 02/19/2011 12:00 AM * Completed , on 10/27/2010 12:00 AM * Completed , on 10/22/2010 12:00 AM * Completed , on 10/17/2010 12:00 AM * Completed , on 10/17/2010 12:00 AM * Completed , on 01/18/2009 12:00 AM Immunizations * Influenza, seasonal, injectable (NOVARTIS VACCIN, Lot # [id number]); Administered 02/23/2014 9:20 AM; 0.5 ML=1 DOSE, [...] the responsibility of the patient or patient electronics parts sales representative to confirm the list of [...]
--- OUTSIDE RECORDS SUMMARY | 2016-11-20 13:49 | XMS REPORT ---
Author Author GENERATED, SYSTEM Organization Unknown Address Unknown Phone Unavailable Care Team Providers Care Vending Machine Attendant Name Role Phone UNASSIGNED DOCTOR , DOCTOR PP Reason For Visit Chief Complaint CHEST PAIN Social History Functional Status Vital Signs [...] Soarian Workflow upon Discharge, Status: Resolved. * Fall Risk Comment:Problem resolved by Soarian [...] by Soarian Workflow upon Discharge, Status:Resolved. * Psychotic Disorder Comment:Problem resolved by Soarian Workflow upon Discharge , Status:Resolved. * Rhabdomyolysis Comment:Problem resolved by Soarian Workflow upon Discharge, Status:Resolved. Encounters Encounter Diagnosis No relevant problems exist. Plan of Care Procedures * Completed Procedure Code: [id number] Procedure Name: not valued, on 05/04/2016 12 :00 AM * Completed , on 02/19/2011 12:00 AM * Completed , on 10/27/2010 12:00 AM * Completed , on 10/22/2010 12:00 AM * Completed , on 10/17/2010 12:00 AM * Completed , on 10/17/2010 12:00 AM * Completed , on 01/18/2009 12:00 AM Immunizations * Influenza, seasonal, injectable (NOVARTIS VACCIN, Lot # [id number]); Administered 02/23/2014 9:20 AM; 0.5 ML=1 DOSE, INTRAMUSCL Hospital Course Hospital Discharge Instructions Allergies, Adverse Reactions, Alerts This section is termite control service representative of the current allergy information, at the time of the CCD generation. In the case of regeneration of the CCD, the allergy information may not reflect the state of known allergies at the time of the CCD' s subject visit. * Bactrim causes Vomiting. * Sulfa (Sulfonamide Antibiotics) causes Hives. * doxycycline causes Severe Nausea. * Latex Allergy has not been assessed. * IV Contrast Allergy has not been assessed. * No Known Food Allergies. Medication Medication reconciliation has not been performed.
--- OUTSIDE RECORDS SUMMARY | 2016-11-20 13:49 | XMS REPORT ---
Author Author GENERATED, SYSTEM Organization Unknown Address Unknown Phone Unavailable Care Team Providers Care Nut Processing Supervisor Name Role Phone UNASSIGNED DOCTOR , DOCTOR [...] 8a-330p, 11am-330p * Address # 1 : [facility]: [address], [address], [place], [place] - Follow-up Appointments from 05/08/2016 10:15 AM:* #1 Office appointment: : Walk In Intake -F 8a-330p, 11am-330p * Address # 1 : [facility]: [address], [facility] [address], [facility] Procedures * Completed , on 02/19/2011 12:00 AM * Completed , on 10/27/2010 12:00 AM * Completed , on 10/22/2010 12:00 AM * Completed , on 10/17/2010 12:00 AM * Completed , on 10/17/2010 12:00 AM * Completed , on 01/18/2009 12:00 AM Immunizations * Influenza, seasonal, injectable (NOVARTIS VACCIN, Lot # [id number]); Administered 02/23/2014 9:20 AM; 0.5 ML=1 DOSE, [...] the responsibility of the patient or patient sales development representative to confirm the list of medications [...]
--- OUTSIDE RECORDS SUMMARY | 2016-11-20 13:49 | XMS REPORT ---
Author Author Leo Valdes [facility] Address [address] [place], [place] [id number] Care Team Providers Care Textile Examiner Name Role Phone Leo Valdes Unavailable PROBLEMS Type Condition ICD9-CM Code [id number] Code Onset Dates Condition Status SNOMED Code Problem Unspecified local infection of skin and subcutaneous tissue 686.9 Active 25135741 Problem Diabetes with other specified manifestations, type II or unspecified type, not stated as uncontrolled 250.80 Active 562135123 Problem Type II diabetes mellitus 250.00 Active 63725732 Problem Polysubstance abuse 305.90 Active 031224979 Problem Unspecified cellulitis and abscess of finger 681.00 Active 805929809 Problem Unspecified staphylococcus infection in conditions classified elsewhere and of unspecified site 041.10 Active Problem Acute pharyngitis 462 Active 508844080 Problem Diabetes mellitus without mention of complication, type II or unspecified type, uncontrolled 250.02 Active 180578773 ALLERGIES Unknown Allergies SOCIAL HISTORY No smoking Hx information available PLAN OF CARE VITAL SIGNS MEDICATIONS Unknown Medications RESULTS No Results PROCEDURES No Known procedures IMMUNIZATIONS No Known Immunizations
--- OUTSIDE RECORDS SUMMARY | 2016-11-20 13:49 | XMS REPORT ---
Author Author GENERATED, SYSTEM Organization Unknown Address Unknown Phone Unavailable Care Team Providers Care Business Development Manager Name Role Phone [facility] PP Unavailable Reason For Visit Reason for [...] (65-99 MG/DL) Serology from 05/20/2014 5:18 AMHIV 02/13 RAPID SCREEN NON-REACTIVE (NON-REACTIVE ) Problems Encounter [...] and 10:00am-3:30pm * Address # 1 : [facility]: [address], [place], [place] - * #2 Office appointment: : SANAM: Bring ID and letter from mom stating unemployment, signed and dated * #2 Date/Time : 06/11/2014 10:15 AM * Address # 2 : [facility] [address], [place], [place] Procedures * Completed , on 02/19/2011 [...] the responsibility of the patient or patient labor relations representative to confirm the list of medications [...] risperidone (RisPERDal) 1 mg Tablet, Ordered By: NATHANIEL ABURTO Directions: [...]
--- OUTSIDE RECORDS SUMMARY | 2016-11-20 13:50 | XMS REPORT ---
Author Author GENERATED, SYSTEM Organization Unknown Address Unknown Phone Unavailable Care Team Providers Care Incubator Operator Name Role Phone [facility] PP Unavailable Reason For Visit Chief Complaint Nausea with vomiting, unspecified,NAUSEA WITH VOMITING,Nausea with vomiting, unspecified,Epigastric pain,Cannabis abuse, uncomplicated,Nicotine dependence, cigarettes, uncomplicated,Type 2 diabetes mellitus without complications Social History Functional Status Vital Signs Results Chemistry from 02/25/2016 5:25 AMSODIUM 137 MMOL/L (136-145 MMOL/L) POTASSIUM 3.5 MMOL/L (3.5-5.1 MMOL/L) CHLORIDE 101 MMOL/L (98-107 MMOL/L) TCO2 27.6 MMOL/L (21.0-32.0 MMOL/L) *ANION GAP 8.4 MMOL/L (8.0-16.0 MMOL/L) BUN 7 MG/DL (7-18 MG/DL) CREATININE 0.85 MG/DL (0.70-1.30 MG/DL) *BUN/CREATININE RATIO 8.2 L (9.1-17.0 ) GLUCOSE 252 MG/DL H (65-99 MG/DL) *GFR EST NON AFR SAMMARINESE >90 ML/MIN *GFR EST AFR AMER >90 ML/MIN CALCIUM 8.6 MG/DL (8.5-10.1 MG/DL) BILIRUBIN TOTAL 0.70 MG/DL (0.20-1.00 MG/DL) TOTAL PROTEIN 7.2 GM/DL (6.4-8.2 GM/DL) ALBUMIN 3.5 GM/DL (3.4-5.0 GM/DL) *GLOBULIN 3.7 GM/DL H (2.3-3.5 GM/DL) *A/G RATIO 0.9 MG/DL L (1.5-2.2 MG/DL) ALK PHOS 67 U/L (46-116 U/L) ALT (SGPT) 46 U/L (14-59 U/L) AST (SGOT) 33 U/L (15-37 U/L) LIPASE 199 U/L (73-393 U/L) ALCOHOL 0.006 GM/DL Hematology from 02/25/2016 5:25 AMWBC 8.2 X10e3/UL (3.6-11.2 X10e3/UL) RBC 4.85 X10e6/UL (4.06-5.63 X10e6/UL) HEMOGLOBIN 15.0 G/DL (12.5-16.3 G/DL) HEMATOCRIT 44.3 % (36.7-47.1 %) *MCV 91.3 FL (80.0-100.0 FL) *MCH 30.8 PG (27.0-33.0 PG) *MCHC 33.8 G/DL (32.0-36.0 G/DL) *RDW 13.5 % (12.3-17.0 %) *RDWSD 42.9 (37.1-47.8 ) PLATELET 342 X10e3/UL (159-386 X10e3/UL) *MPV 7.7 FL (7.4-10.4 FL) AUTOMATED DIFF PERFORMED SEGS 69.1 % *LYMPHOCYTES 22.4 % *MONOCYTES 7.2 % *EOSINOPHILS 0.8 % *BASOPHILS 0.5 % *ABSOLUTE NEUTROPHILS 5.70 X10e3/UL (1.80-7.80 X10e3/UL) *ABSOLUTE LYMPHOCYTES 1.80 X10e3/UL (1.00-3.00 X10e3/UL) *ABSOLUTE MONOCYTES 0.60 X10e3/UL (0.30-1.00 X10e3/UL) *ABSOLUTE EOSINOPHILS 0.10 X10e3/UL (0.00-0.50 X10e3/UL) *ABSOLUTE BASOPHILS 0.00 X10e3/UL (0.00-0.20 X10e3/UL) Problems Encounter [...] Influenza, seasonal, injectable (NOVARTIS VACCIN, Lot # [id number]); Administered 02/23/2014 9:20 AM; 0.5 ML=1 DOSE, INTRAMUSCL Hospital Course Hospital Discharge Instructions Allergies, Adverse Reactions, Alerts * Sulfa (Sulfonamide Antibiotics) causes Unknown. * Latex Allergy has not been assessed. * IV Contrast Allergy has not been assessed. * No Known Food Allergies. Medication Medication reconciliation has not been performed.
--- OUTSIDE RECORDS SUMMARY | 2016-11-20 13:50 | XMS REPORT ---
Author Author GENERATED, SYSTEM Organization Unknown Address Unknown Phone Unavailable Care Team Providers Care Binder Cutter Name Role Phone [facility] PP Unavailable Reason For Visit Reason for Visit from 02/28/2016 2:06 PM:* Pt Stated Reason for Adm : "lots of bills, separation with my SO, life in general" Reason for Visit from 02/27/2016 2:07 PM:* Pt Stated Reason for Adm : "I'm a hazard to my own health, to my own self." Chief Complaint UNSPECIFIED BIPOLAR Social History Social History from 03/01/2016 12:25 PM:* Tobacco Use? : Current Everyday Smoker Social History from 02/28/2016 2:06 PM:* Tobacco Use? : Current Everyday Smoker Social History from 02/27/2016 2:07 PM:* Tobacco Use? : Current Everyday Smoker Functional Status Functional Status from 03/01/2016 8:18 AM:* LOC : Alert * Oriented To : Person,Place,Time,Event * Weight Bearing Status : Full * Assist Level : Independent * # Assists : Independent Functional Status from 02/29/2016 7:45 PM:* LOC : Alert * Oriented To : Person,Place,Time,Event * Weight Bearing Status : Full * Assist Level : Independent * # Assists : Independent Functional Status from 02/29/2016 8:57 AM:* LOC : Alert * Oriented To : Person,Place,Time,Event * Weight Bearing Status : Full * Assist Level : Independent * # Assists : Independent Functional Status from 02/28/2016 10:32 PM:* LOC : Alert * Oriented To : Person,Place,Time,Event * Weight Bearing Status : Full * Assist Level : Independent * # Assists : Independent Functional Status from 02/28/2016 8:53 AM:* LOC : Alert * Oriented To : Person,Place,Time,Event * Weight Bearing Status : Full * Assist Level : Independent * # Assists : Independent Functional Status from 02/27/2016 10:08 PM:* LOC : Alert * Oriented To : Person,Place,Time,Event * Weight Bearing Status : Full * Assist Level : Independent * # Assists : Independent Functional Status from 02/27/2016 2:07 PM:* LOC : Alert * Oriented To : Person,Place,Time,Event * Weight Bearing Status : Full * Assist Level : Independent * # Assists : Independent Vital Signs Hospital Vital Signs from 03/01/2016 6:22 AM:* Weight : 63.1/ kg * Height : 5/9 ft,in * Temperature : 97.8 F * Pulse : 89 * Respirations : 18 * BP : 132/79 Hospital Vital Signs from 02/29/2016 6:31 AM:* Height : 5/9 ft,in * Temperature : 98.8 F * Pulse : 84 * Respirations : 18 * BP : 113/76 Hospital Vital Signs from 02/28/2016 10:53 AM:* Height : 5/9 ft,in Hospital Vital Signs from 02/28/2016 6:54 AM:* Height : 5/9 ft,in * Temperature : 98.8 F * Pulse : 82 * Respirations : 18 * BP : 101/69 Hospital Vital Signs from 02/27/2016 2:10 PM:* Weight : 60.8/ kg * Height : 5/9 ft,in * Temperature : 98.4 F * Pulse : 87 * Respirations : 18 * BP : 110/69 Hospital Vital Signs from 02/27/2016 2:07 PM:* Weight : 60.8/ kg * Height : 5/9 ft,in Results Chemistry from 02/28/2016 6:23 AMGLUCOSE (FASTING) 174 MG/DL H (65-99 MG/DL) *EST AVG GLUCOSE 168.6 gm/dl HEMOGLOBIN A1C 7.5 % H (4.5-6.2 %) Problems Encounter Diagnosis * Anxiety Status:Active. * Mood Disorder Status:Active. Additional Problems * Bipolar Affective Disorder, Current [...] upon Discharge, Status:Resolved. Encounters Encounter Diagnosis * Anxiety Status:Active. * Mood Disorder Status:Active. Plan of Care Follow-up Appointments from 03/01/2016 12:25 PM:* #1 Office appointment: : [facility] Intake * Address # 1 : [facility]: [address], [address], [facility] Procedures * Completed , on 02/19/2011 12:00 AM * Completed , on 10/27/2010 12:00 AM * Completed , on 10/22/2010 12:00 AM * Completed , on 10/17/2010 12:00 AM * Completed , on 10/17/2010 12:00 AM * Completed , on 01/18/2009 12:00 AM Immunizations * Influenza, seasonal, injectable (NOVARTIS VACCIN, Lot # [id number]); Administered 02/23/2014 9:20 AM; 0.5 ML=1 DOSE, INTRAMUSCL Hospital Course Hospital Discharge Instructions How to care for yourself at home from 03/01/2016 12:25 PM:* Discharge Activity : Activity as tolerated [...] symptoms worsen. (Weigh at home tomorrow morning) Allergies, Adverse Reactions, Alerts * Sulfa (Sulfonamide Antibiotics) causes Hives. * doxycycline causes Severe Nausea. * No Latex Allergy. * No IV Contrast Allergy. * No Known Food Allergies. Medication It is the responsibility of the patient or patient agency sales representative to confirm the list of medications with either the patient's personal care provider or the patient's follow-up care provider to ensure the patient has an appropriate list of medications to take at home. Discharge medications New medications* QUEtiapine (SEROquel) 25 mg Tablet, Ordered By: MEENAKSHI WORRELL Directions: 1 tablet oral daily at bedtime for insomnia * nitrofurantoin monohyd/m-cryst 100 mg Capsule, Ordered By: MEENAKSHI WORRELL Directions: 1 capsule oral twice a day for UTI Additional Instructions: GIVE WITH FOOD, TAKE UNTIL GONE * nicotine (polacrilex) (Nicorelief) 2 mg Gum, Ordered By: MEENAKSHI WORRELL Directions: 1 gum oral daily for SMOKING CESSATION Additional Instructions: DO NOT GIVE IF PATIENT UNDER AGE 18 OR . * divalproex (Depakote) 500 mg tablet,delayed release (DR/EC), Ordered By: MEENAKSHI WORRELL Directions: 1 tablet oral twice a day for mood stabilization * buPROPion HCl 150 mg Tablet Extended Release 24 hr, Ordered By: MEENAKSHI WORRELL Directions: 1 tablet oral daily for depression Additional Instructions: DO NOT SUBSTITUTE TO SR DOSAGE FORM * insulin aspart (NovoLOG) 100 unit/mL Solution, Ordered By: MEENAKSHI WORRELL Directions: 2 unit subcutaneous daily with breakfast for for diabetes management * insulin aspart (NovoLOG) 100 unit/mL Solution, Ordered By: MEENAKSHI WORRELL Directions: 2 unit subcutaneous daily with dinner for for diabetes management * insulin aspart (NovoLOG) 100 unit/mL Solution, Ordered By: MEENAKSHI WORRELL Directions: 3 unit subcutaneous daily with lunch for for diabetes management Stopped medications* None
--- OUTSIDE RECORDS SUMMARY | 2016-11-20 13:50 | XMS REPORT ---
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 Problem Dyspepsia R10.13 Active Problem Type 2 diabetes mellitus without complications E11.9 Active Assessment Constipation, unspecified constipation type K59.00 Active Assessment 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 2 times a day July 29, 2015 as directed Magnesium Citrate [facility] [address]-01 1.745 GM/30ML Orally one time August 24, 2015 August 25, 2015 1 bottle as directed Trutest Blood Glucose Test Strip NDC 0 ... 2 times a day with meter and lancets August 24, 2015 as directed Zofran [facility] [address]-99 8 MG Orally every 8 hours, PRN August 24, 2015 1 tablet Test strips NDC 0 ... 2 times a day July 29, 2015 as directed Procedures Procedure Coding System Code Date URINALYSIS, AUTO, W/O SCOPE CPT-4 97801 August 24, 2015 Office Visit, Est Pt., Level 3 CPT-4 17520 August 24, 2015 URINE CULTURE/COLONY COUNT CPT-4 43141 August 24, 2015 Vital Signs Date/Time: August 24, 2015 Cardiac Monitoring Heart Rate 80 bpm Weight 148.8 lbs Height 69.0 in BMI 21.97 Index Blood Pressure Diastolic 70 mmHg Blood Pressure Systolic 110 mmHg Results No Known Results Summary Purpose eClinicalWorks Submission
--- OUTSIDE RECORDS SUMMARY | 2016-11-20 13:50 | XMS REPORT ---
Author Author GENERATED, SYSTEM Organization Unknown Address Unknown Phone Unavailable Care Team Providers Care University Teacher Name Role Phone UNASSIGNED DOCTOR , DOCTOR [...] mmol/L) Problems Encounter Diagnosis * Alcohol Abuse Status:Active. * Altered Mental Status Status:Active. * Amphetamine Abuse Status:Active. * Cannabis Abuse Status:Active. * Fall Risk Status:Active. Additional Problems * Acute Pain Comment:Problem [...] Status:Resolved. Encounters Encounter Diagnosis * Alcohol Abuse Status:Active. * Altered Mental Status Status:Active. * Amphetamine Abuse Status:Active. * Cannabis Abuse Status:Active. * Fall Risk Status:Active. Plan of Care Procedures * Completed , on 02/19/2011 12:00 AM * Completed , on 10/27/2010 12:00 AM * Completed , on 10/22/2010 12:00 AM * Completed , on 10/17/2010 12:00 AM * Completed , on 10/17/2010 12:00 AM * Completed , on 01/18/2009 12:00 AM Immunizations * Influenza, seasonal, injectable (NOVARTIS VACCIN, Lot # [id number]); Administered 02/23/2014 9:20 AM; 0.5 ML=1 DOSE, INTRAMUSCL Hospital Course Hospital Discharge Instructions How to care for yourself at home from 05/05/2016 10:15 AM:* Call your doctor if: : Fever over 101 F or severe chills,Chest pain or other unexplained symptoms, Tingling or numbness develops,A sudden increase or decrease in weight,You have persistent or worsening symptoms,If you have Heart Failure and you gain 3 pounds within 1 week or your symptoms worsen. (Weigh at home tomorrow morning) Allergies, Adverse Reactions, Alerts * Bactrim causes Vomiting. * Sulfa (Sulfonamide Antibiotics) causes Hives. * doxycycline causes Severe Nausea. * No Latex Allergy. * No IV Contrast Allergy. * No Known Food Allergies. Medication Medication reconciliation has not been performed.
--- OUTSIDE RECORDS SUMMARY | 2016-11-20 13:50 | XMS REPORT ---
Author Author Leo Valdes [facility] e[employer] Address Unknown Phone Unavailable Care Team Providers Care Fabrication Supervisor Name Role Phone Leo Valdes CP Unavailable Allergies No Known Allergies Problems Problem Type Condition Code Onset Dates Condition Status Problem Diabetes with other specified manifestations, type II or unspecified type, not stated as uncontrolled 250.80 Active Problem Polysubstance abuse 305.90 Active Problem Acute pharyngitis 462 Active Problem Type II diabetes mellitus 250.00 Active Problem Unspecified staphylococcus infection in conditions classified elsewhere and of unspecified site 041.10 Active Problem Unspecified local infection of skin and subcutaneous tissue 686.9 Active Problem Diabetes mellitus without mention of complication, type II or unspecified type, uncontrolled 250.02 Active Problem Unspecified cellulitis and abscess of finger 681.00 Active Medications No Known Medications Results No Known Results Summary Purpose eClinicalWorks Submission
--- OUTSIDE RECORDS SUMMARY | 2016-11-20 13:51 | XMS REPORT ---
Author Author GENERATED, SYSTEM Organization Unknown Address Unknown Phone Unavailable Care Team Providers Care Cylinder Checker Name Role Phone [facility] PP Unavailable Reason For Visit Reason for Visit from 03/26/2016 9:28 PM:* Pt Stated Reason for Adm : Right swollen testicle Chief Complaint ACUTE RF EPIDIMIDITIS Social History Social History from 03/28/2016 9:57 AM:* Tobacco Use? : Current Everyday Smoker Social History from 03/26/2016 9:28 PM:* Tobacco Use? : Current Everyday Smoker Functional Status Functional Status from 03/28/2016 9:48 AM:* LOC : Alert * Oriented To : Person,Place,Time * Weight Bearing Status : Full * Assist Level : Independent * # Assists : Independent Functional Status from 03/27/2016 9:25 PM:* LOC : Alert * Oriented To : Person,Place,Time,Event * Weight Bearing Status : Full * Assist Level : Independent * # Assists : Independent Functional Status from 03/27/2016 8:34 AM:* LOC : Alert * Oriented To : Person,Place,Time,Event * Weight Bearing Status : Full * Assist Level : Independent * # Assists : 1 Functional Status from 03/26/2016 9:28 PM:* LOC : Alert * Oriented To : Person,Place,Time,Event * Weight Bearing Status : Full * Assist Level : Independent * # Assists : Independent Vital Signs Hospital Vital Signs from 03/28/2016 7:04 AM:* Height : 5/9 ft,in * Temperature : 98.0 F * Pulse : 94 * Respirations : 18 * BP : 133/75 Hospital Vital Signs from 03/28/2016 2:54 AM:* Weight : 80.2/ kg * Height : 5/9 ft,in * Temperature : 98.9 F * Pulse : 90 * Respirations : 20 * BP : 144/75 Hospital Vital Signs from 03/27/2016 10:40 PM:* Height : 5/9 ft,in * Temperature : 97.4 F * Pulse : 92 * Respirations : 20 * BP : 115/63 Hospital Vital Signs from 03/27/2016 9:25 PM:* Heart Rate : 93 Hospital Vital Signs from 03/27/2016 7:27 PM:* Height : 5/9 ft,in * Temperature : 97.7 F * Pulse : 93 * Respirations : 20 * BP : 123/73 Hospital Vital Signs from 03/27/2016 3:46 PM:* Height : 5/9 ft,in * Temperature : 99.3 F * Pulse : 63 * Respirations : 20 * BP : 118/64 Hospital Vital Signs from 03/27/2016 11:05 AM:* Height : 5/9 ft,in * Temperature : 98.7 F * Pulse : 87 * Respirations : 20 * BP : 116/56 Hospital Vital Signs from 03/27/2016 10:58 AM:* Height : 5/9 ft,in Hospital Vital Signs from 03/27/2016 8:34 AM:* Heart Rate : 88 Hospital Vital Signs from 03/27/2016 7:19 AM:* Height : 5/9 ft,in * Temperature : 98.7 F * Pulse : 81 * Respirations : 20 * BP : 137/75 Hospital Vital Signs from 03/27/2016 3:30 AM:* Height : 5/9 ft,in * Temperature : 96.8 F * Pulse : 81 * Respirations : 18 * BP : 107/69 Hospital Vital Signs from 03/26/2016 11:41 PM:* Height : 5/9 ft,in * Temperature : 98.1 F * Pulse : 89 * Respirations : 18 * BP : 121/62 Hospital Vital Signs from 03/26/2016 9:28 PM:* Weight : 75.5/ kg * Height : 5/9 ft,in Hospital Vital Signs from 03/26/2016 8:22 PM:* Height : 5/9 ft,in * Temperature : 101 F * Pulse : 98 * Respirations : 18 * BP : 117/69 Results Chemistry from 03/27/2016 4:19 AMSODIUM 139 MMOL/L (136-145 MMOL/L) POTASSIUM 4.0 MMOL/L (3.5-5.1 MMOL/L) CHLORIDE 105 MMOL/L (98-107 MMOL/L) TCO2 30.2 MMOL/L (21.0-32.0 MMOL/L) *ANION GAP 3.8 MMOL/L L (8.0-16.0 MMOL/L) BUN 16 MG/DL (7-18 MG/DL) CREATININE 0.80 MG/DL (0.70-1.30 MG/DL) *BUN/CREATININE RATIO 20.0 H (9.1-17.0 ) GLUCOSE 96 MG/DL (65-99 MG/DL) *GFR EST NON AFR CAMBODIAN >90 ML/MIN *GFR EST AFR AMER >90 ML/MIN CALCIUM 7.6 MG/DL L (8.5-10.1 MG/DL) Hematology from 03/27/2016 4:19 AMWBC 11.5 X10e3/UL H (3.6-11.2 X10e3/UL) RBC 3.59 X10e6/UL L (4.06-5.63 X10e6/UL) HEMOGLOBIN 11.2 G/DL L (12.5-16.3 G/DL) HEMATOCRIT 33.3 % L (36.7-47.1 %) *MCV 92.9 FL (80.0-100.0 FL) *MCH 31.2 PG (27.0-33.0 PG) *MCHC 33.6 G/DL (32.0-36.0 G/DL) *RDW 13.8 % (12.3-17.0 %) *RDWSD 44.6 (37.1-47.8 ) PLATELET 194 X10e3/UL (159-386 X10e3/UL) *MPV 9.1 FL (7.4-10.4 FL) *MANUAL DIFF PERFORMED SEGS 80.0 % *BANDS 5.0 % *LYMPHOCYTES 14.0 % *MONOCYTES 0.0 % *EOSINOPHILS 1.0 % *BASOPHILS 0.0 % *ABSOLUTE NEUTROPHILS 9.78 X10e3/UL H (1.80-7.80 X10e3/UL) *ABSOLUTE LYMPHOCYTES 1.61 X10e3/UL (1.00-3.00 X10e3/UL) *ABSOLUTE MONOCYTES 0.00 X10e3/UL L (0.30-1.00 X10e3/UL) *ABSOLUTE EOSINOPHILS 0.12 X10e3/UL (0.00-0.50 X10e3/UL) *ABSOLUTE BASOPHILS 0.00 X10e3/UL (0.00-0.20 X10e3/UL) *POLYCHROMASIA 1+ OVALOCYTES 1+ Microbiology from 03/27/2016 3:30 PM* CULTURE URINE (Preliminary Result) Specimen Number: [id number] Sample Collection Date/Time: 03/27/2016 3:30 PM Specimen Source: Urine Clean Catch CULTURE URINE: No growth Body Fluids from 03/27/2016 3:30 PM*CYTOLOGY - NON-EMPLOYEE ADVISER REC'D IN LAB *CYTOLOGY SOURCE URINE *CYTOLOGY SITE NOT APPLICABLE Problems Encounter Diagnosis * Acute Pain Status:Active. * Blood Glucose Abnormal Status:Active. * Infection Risk Status:Active. Additional Problems * Anxiety Comment:Problem resolved by [...] upon Discharge, Status:Resolved. Encounters Encounter Diagnosis * Acute Pain Status:Active. * Blood Glucose Abnormal Status:Active. * Infection Risk Status:Active. Plan of Care Treatment Plan from 03/28/2016 10:00 AM:* Care Management Note : Follow up made with patient regarding discharge plan and obtaining his medications. He stated he was leaving soon and there is no need for doctor to write scripts for meds because he is not going to fill them. I discussed importance of taking meds and he stated he knew but he has no money. I called [facility] to see if they would make exception and help with meds since he used them last month but they are not able to help. Patient states his family will not help but he has not asked them to be sure. He says he was recently fired from his job at [employer] for threatening another employee. He has not pursued any further job employment. I called [facility] while in room to see how quickly patient could be seen there so he can be set up with patient assistance for medications. The earliest appt with Dr. Valdes is Apr 06 at 0945. Patient informed. He is also on their cancellation list in case something becomes available earlier. During visit with patient he would frequently laugh when I would ask about his plans and trying to problem solve to obtain medications and healthcare. When I confronted him about this, he states he is laughing because he isn't going to do anything we discussed. 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 I explained he could seek employment and pay for his medications that way. Patient not able to be reasoned with rationally at this time. I then left room and a few minutes later he went AMA. Treatment Plan from 03/27/2016 3:35 PM:* Care Management Note : Patient is Inpatient status in a medical bed. Patient was seen in ER earlier the same day with complaints of worsening groin pain, testicular swelling, and temp- 102.0. Patient diagnosed with epididymitis and sepsis. POC currently includes HWT, scheduled insulin, home medications PO, levaquin IV daily, rocephin IV daily, NS @125, PVR every shift, and urology consult. Abnormal labs are noted. UA culture with cytology is pending. Blood cultures x2 are pending results. VSS on RA at this time. Right testicular doppler shows findings most consistent with right epididymitis. SW notified of POC. Care Management will continue to follow. Treatment Plan from 03/27/2016 2:32 PM:* Care Management Note : Patient currently staying with his sister and plans to return at discharge. He currently has no insurance so referral made to [place]. He has gone to [facility] in the past and plans to follow up with them at discharge. He has been unable to afford his medications and states his family/friends also unable to help him. Discussed using [facility] patient assistance program and he voiced understanding. Info also given on [facility] for Help but he states he used them last month an antibiotic so is not eligible for assistance from them at this time. He has been seen by diabetic education and he was given info on cost of insulin over counter at [facility] which is significantly cheaper than what he says it cost him through pharmacy. He states his insulin cost approximately $600 a month and it would be approximately $30 at [facility]. My contact info provided and will be available as needs arise. Procedures * Completed , on 02/19/2011 12:00 AM * Completed , on 10/27/2010 12:00 AM * Completed , on 10/22/2010 12:00 AM * Completed , on 10/17/2010 12:00 AM * Completed , on 10/17/2010 12:00 AM * Completed , on 01/18/2009 12:00 AM Immunizations * Influenza, seasonal, injectable (NOVARTIS VACCIN, Lot # [id number]); Administered 02/23/2014 9:20 AM; 0.5 ML=1 DOSE, INTRAMUSCL Hospital Course Hospital Discharge Instructions How to care for yourself at home from 03/28/2016 9:57 AM:* Discharge Activity : Activity as tolerated,May Shower * Discharge Diet : Modification as given by physician * Discharge Diet: : Peruvian Diabetic Diet * Call your doctor if: : Fever [...] the responsibility of the patient or patient school admissions representative to confirm the list of medications with either the patient's personal care provider or the patient's follow-up care provider to ensure the patient has an appropriate list of medications to take at home. Discharge medications New medications* Rergular Insulin Directions: 5 Units with each meal * levofloxacin 500 mg Tablet Directions: 1 tablet oral daily Continued medications* buPROPion HCl 150 mg Tablet Extended Release 24 hr, Ordered By: ALLISON HOFFMAN MD Directions: 1 tablet oral daily for depression Additional Instructions: DO NOT SUBSTITUTE TO SR DOSAGE FORM Stopped medications* divalproex (Depakote) 500 mg tablet,delayed release (DR/EC) Directions: 1 tablet oral twice a day for mood stabilization * insulin aspart (NovoLOG) 100 unit/mL Solution Directions: 2 unit subcutaneous daily with breakfast for for diabetes management * insulin aspart (NovoLOG) 100 unit/mL Solution Directions: 2 unit subcutaneous daily with dinner for for diabetes management * nicotine (polacrilex) (Nicorelief) 2 mg Gum Directions: 1 gum oral daily for SMOKING CESSATION Additional Instructions: DO NOT GIVE IF PATIENT UNDER AGE 18 OR . * QUEtiapine (SEROquel) 25 mg Tablet Directions: 1 tablet oral daily at bedtime for insomnia * insulin aspart (NovoLOG) 100 unit/mL Solution Directions: 3 unit subcutaneous daily with lunch for for diabetes management
--- OUTSIDE RECORDS SUMMARY | 2016-11-20 13:51 | XMS REPORT ---
Author Author GENERATED, SYSTEM Organization Unknown Address Unknown Phone Unavailable Care Team Providers Care Financial Report Service Sales Agent Name Role Phone UNASSIGNED DOCTOR , DOCTOR PP Reason For Visit Chief Complaint ULCER Social History Functional Status Vital Signs Results Chemistry from 05/31/2016 4:53 PMKETONE (B-HYDROXY) WB <0.6 MMOL/L (-<0.6 MMOL/L) Chemistry from 05/31/2016 4:02 PMSODIUM 134 MMOL/L L (136-145 MMOL/L) POTASSIUM 3.8 MMOL/L (3.5-5.1 MMOL/L) CHLORIDE 93 MMOL/L L (98-107 MMOL/L) TCO2 32.0 MMOL/L (21.0-32.0 MMOL/L) *ANION GAP 9.0 MMOL/L (8.0-16.0 MMOL/L) BUN 16 MG/DL (7-18 MG/DL) CREATININE 1.21 MG/DL (0.70-1.30 MG/DL) *BUN/CREATININE RATIO 13.2 (9.1-17.0 ) GLUCOSE 360 MG/DL H (65-99 MG/DL) *GFR EST NON AFR NIUEAN 79 ML/MIN (Reference Range: not available) *GFR EST AFR AMER >90 ML/MIN (Reference Range: not available) CALCIUM 11.3 MG/DL H (8.5-10.1 MG/DL) BILIRUBIN TOTAL 1.10 MG/DL H (0.20-1.00 MG/DL) TOTAL PROTEIN 7.7 GM/DL (6.4-8.2 GM/DL) ALBUMIN 3.8 GM/DL (3.4-5.0 GM/DL) *GLOBULIN 3.9 GM/DL H (2.3-3.5 GM/DL) *A/G RATIO 1.0 MG/DL L (1.5-2.2 MG/DL) ALK PHOS 87 U/L (46-116 U/L) ALT (SGPT) 38 U/L (14-59 U/L) AST (SGOT) 27 U/L (15-37 U/L) MAGNESIUM 1.5 MG/DL L (1.8-2.4 MG/DL) PHOSPHORUS 5.2 MG/DL H (2.6-4.7 MG/DL) AMYLASE 93 U/L (25-115 U/L) LIPASE 237 U/L (73-393 U/L) TROPONIN-I <0.017 NG/ML (0.000-0.056 NG/ML) ALCOHOL <0.003 GM/DL (Reference Range: not available) ACETAMINOPHEN <2 MCG/ML L (10-30 MCG/ML) SALICYLATE 0.6 MG/DL L (2.8-20.0 MG/DL) Hematology from 05/31/2016 4:02 PMWBC 17.3 X10e3/UL H (3.6-11.2 X10e3/UL) RBC 4.90 X10e6/UL (4.06-5.63 X10e6/UL) HEMOGLOBIN 15.1 G/DL (12.5-16.3 G/DL) HEMATOCRIT 44.9 % (36.7-47.1 %) *MCV 91.7 FL (80.0-100.0 FL) *MCH 30.8 PG (27.0-33.0 PG) *MCHC 33.5 G/DL (32.0-36.0 G/DL) *RDW 14.4 % (12.3-17.0 %) *RDWSD 45.9 (37.1-47.8 ) PLATELET 274 X10e3/UL (159-386 X10e3/UL) *MPV 8.0 FL (7.4-10.4 FL) AUTOMATED DIFF PERFORMED (Reference Range: not available) SEGS 81.1 % (Reference Range: not available) *LYMPHOCYTES 11.3 % (Reference Range: not available) *MONOCYTES 6.3 % (Reference Range: not available) *EOSINOPHILS 0.6 % (Reference Range: not available) *BASOPHILS 0.7 % (Reference Range: not available) *ABSOLUTE NEUTROPHILS 14.10 X10e3/UL H (1.80-7.80 X10e3/UL) *ABSOLUTE LYMPHOCYTES 2.00 X10e3/UL (1.00-3.00 X10e3/UL) *ABSOLUTE MONOCYTES 1.10 X10e3/UL H (0.30-1.00 X10e3/UL) *ABSOLUTE EOSINOPHILS 0.10 X10e3/UL (0.00-0.50 X10e3/UL) *ABSOLUTE BASOPHILS 0.10 X10e3/UL (0.00-0.20 X10e3/UL) Coagulation from 05/31/2016 4:02 PM*PROTHROMBIN TIME 9.6 SECONDS (9.4-11.5 SECONDS) *INR 0.9 (0.9-1.1 ) PARTIAL THROMBOPLASTIN TIME 23.3 SECONDS (23.0-31.0 SECONDS) Problems Encounter Diagnosis No relevant problems exist. [...] of Care Procedures * Completed Procedure Code: [id number] Procedure Name: not valued, on 05/04/2016 12 :00 AM * Completed , on 02/19/2011 12:00 AM * Completed , on 10/27/2010 12:00 AM * Completed , on 10/22/2010 12:00 AM * Completed , on 10/17/2010 12:00 AM * Completed , on 10/17/2010 12:00 AM * Completed , on 01/18/2009 12:00 AM Immunizations * Influenza, seasonal, injectable (NOVARTIS VACCIN, Lot # [id number]); Administered 02/23/2014 9:20 AM; 0.5 ML=1 DOSE, INTRAMUSCL Hospital Course Hospital Discharge Instructions Allergies, Adverse Reactions, Alerts This section is visitor services representative of the current allergy information, at [...]
--- OUTSIDE RECORDS SUMMARY | 2016-11-20 13:51 | XMS REPORT ---
Author Author GENERATED, SYSTEM Organization Unknown Address Unknown Phone Unavailable Care Team Providers Care Traffic Control Technician Name Role Phone [facility] PP Unavailable Reason For Visit Chief Complaint HYPERGLYCEMIA Social History Functional Status Vital Signs Results [...] Influenza, seasonal, injectable (NOVARTIS VACCIN, Lot # [id number]); Administered 02/23/2014 9:20 AM; 0.5 ML=1 DOSE, INTRAMUSCL Hospital Course Hospital Discharge Instructions Allergies, Adverse Reactions, Alerts * Sulfa (Sulfonamide Antibiotics) causes Unknown. * Latex Allergy has not been assessed. * IV Contrast Allergy has not been assessed. * No Known Food Allergies. Medication Medication reconciliation has not been performed.
--- OUTSIDE RECORDS SUMMARY | 2016-11-20 13:51 | XMS REPORT ---
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 2 times a day July 29, 2015 as directed Test strips NDC 0 ... 2 times a day July 29, 2015 as directed Zithromax [facility] [address]-03 250 MG Orally Once a day Oct 01, 2015 Oct 06, 2015 2 tablets on the first day, then 1 tablet daily for 4 days Omeprazole [facility] [address]-02 40 mg Orally twice a day August 12, 2015 1 capsule Lantus [facility] [address]-29 100 UNIT/ML Subcutaneous Once a day 20 units Trutest Blood Glucose Test Strip NDC 0 ... 2 times a day with meter and lancets August 24, 2015 as directed Sucralfate [facility] [address]-13 1 GM Orally Twice a day August 12, 2015 1 tablet on an empty stomach Procedures Procedure Coding System Code Date Office Visit, Est Pt., Level 3 CPT-4 26863 Oct 01, 2015 Vital Signs Date/Time: Oct 01, 2015 Cardiac Monitoring Heart Rate 94 bpm Weight 142.4 lbs Height 69.0 in BMI 21.03 Index Blood Pressure Diastolic 70 mmHg Blood Pressure Systolic 110 mmHg Results No Known Results Summary Purpose [employer] Submission
--- OUTSIDE RECORDS SUMMARY | 2016-11-20 13:51 | XMS REPORT ---
Author Author BHASKAR CAMACHO Organization [employer] Address Unknown Phone Unavailable Care Team Providers Care Fund Director Name Role Phone BHASKAR CAMACHO CP Unavailable Allergies, Adverse Reactions, Alerts Substance Reaction Event Type Sulfamethoxazole vomiting Drug Allergy Problems Problem Type Condition Code Onset Dates Condition Status Problem Type 2 diabetes mellitus with diabetic neuropathy, unspecified E11.40 Active Assessment Dyspepsia R10.13 Active Problem Dyspepsia R10.13 Active Medications Medication Code System Code Instructions Start Date End Date Status Dosage Glucometer NDC 0 ... 2 times a day July 29, 2015 as directed Omeprazole [facility] [address]-46 40 mg Orally twice a day August 12, 2015 1 capsule Test strips NDC 0 ... 2 times a day July 29, 2015 as directed Zantac [facility] [address]-88 150 MG Orally Once a day 1 tablet at bedtime Sucralfate [facility] [address]-46 1 GM Orally Twice a day August 12, 2015 1 tablet on an empty stomach Lantus [facility] [address]-97 100 UNIT/ML Subcutaneous Once a day 20 units Procedures Procedure Coding System Code Date IMMUNOASSAY,INFECTIOUS AGENT CPT-4 36948 August 12, 2015 Office Visit, Est Pt., Level 3 CPT-4 27842 August 12, 2015 Vital Signs Date/Time: August 12, 2015 Cardiac Monitoring Heart Rate 84 bpm Weight 149.0 lbs Height 69.0 in Blood Pressure Diastolic 70 mmHg Blood Pressure Systolic 104 mmHg Results No Known Results Summary Purpose [employer] Submission
--- OUTSIDE RECORDS SUMMARY | 2016-11-20 13:51 | XMS REPORT | Summary of Care ---
Author Author Heather Mayo PA-C Organization Unknown Address [address], [place] [id number] Phone Unavailable Care Team Providers Care Inspector Process Name Role Phone Heather Mayo PA-C Unavailable Unavailable No Assigned PCP-Pt Confirmed Unavailable Unavailable Functional Status Name Dates Details Functional status health issues are not documented Status: Name Dates Details Cognitive status health issues are not documented Status: Problems Name Dates Details Epididymitis (604.90, N45.1) Status: Active Uncontrolled diabetes mellitus (250.02, E11.65) Status: Active Medications Name Dates Details Medication not documented Allergies and Adverse Reactions Name Dates Details Allergy history not documented Status: Procedures Procedure Dates Details History of Incision And Removal Subcutaneous Foreign Body, Complicated Completed: 22-Oct-2010 Procedures not documented Immunization Name Dates Details Immunizations not documented Social History Name Dates Details Unknown if ever smoked Vital Signs Date Test Result Details No Known Vitals to report Results Date Description Value Details Results not documented Plan of Care Name Dates Details Planned Observations Planned Goals not documented Instructions Name Dates Details Instructions not documented Encounters Non-Appointment; Heather Mayo PA-C Encounter Diagnosis: Problem not documented On 27-Mar-2016 20:10
--- OUTSIDE RECORDS SUMMARY | 2016-11-20 13:52 | XMS REPORT ---
Author Author GENERATED, SYSTEM Organization Unknown Address Unknown Phone Unavailable Care Team Providers Care Scouring Train Operator Name Role Phone [facility] PP Unavailable Reason For Visit Chief Complaint COUGH, CHEST CONJESTION Social History Functional Status Vital Signs Results Microbiology from 02/16/2016 6:42 PM* CULTURE GROUP A STREP Specimen Number: [id number] Sample Collection Date/Time: 02/16/2016 6:42 PM Specimen Source: Throat GROUP A STREP, RAPID AG: NEGATIVE FOR GROUP A STREP CULTURE GROUP A STREP: No growth of Streptococcus pyogenes * GROUP A STREP, RAPID AG Specimen Number: [id number] Sample Collection Date/Time: 02/16/2016 6:42 PM Specimen Source: Throat GROUP A STREP, RAPID AG: NEGATIVE FOR GROUP A STREP CULTURE GROUP A STREP: No growth of Streptococcus pyogenes Problems Encounter Diagnosis No relevant problems exist. [...] Influenza, seasonal, injectable (NOVARTIS VACCIN, Lot # [id number]); Administered 02/23/2014 9:20 AM; 0.5 ML=1 DOSE, INTRAMUSCL Hospital Course Hospital Discharge Instructions Allergies, Adverse Reactions, Alerts * Sulfa (Sulfonamide Antibiotics) causes Unknown. * Latex Allergy has not been assessed. * IV Contrast Allergy has not been assessed. * No Known Food Allergies. Medication Medication reconciliation has not been performed.
--- OUTSIDE RECORDS SUMMARY | 2016-11-20 13:52 | XMS REPORT | Summary of Care ---
Author Author Heather Mayo PA-C Organization Unknown Address [address], [place] [id number] Phone Unavailable Care Team Providers Care Core Extruder Name Role Phone Heather Mayo PA-C Unavailable [...]
--- OUTSIDE RECORDS SUMMARY | 2016-11-20 13:52 | XMS REPORT ---
Author Author GENERATED, SYSTEM Organization Unknown Address Unknown Phone Unavailable Care Team Providers Care Skiver Operator Name Role Phone [facility] PP Unavailable Reason For Visit Chief Complaint CHEST PAIN Social History Functional Status Vital Signs Results Chemistry from 05/24/2014 6:12 AMCOCAINE NEGATIVE (NEG <150 ) PCP NEGATIVE (NEG <25 ) OXYCODONE NEGATIVE (NEG <100 ) *PROPOXYPHENE (NORPROPOXYPHENE) (LAB) NEGATIVE (NEG <300 ) CANNABINOIDS POSITIVE A (NEG <50 ) BENZODIAZEINE NEGATIVE (NEG <150 ) AMPHETAMINE NEGATIVE (NEG <500 ) BARBITURATES NEGATIVE (NEG <200 ) METHAMPHETAMINES POSITIVE A (NEG <500 ) METHADONE (UR) NEGATIVE (NEG <200 ) OPIATES NEGATIVE (NEG <100 ) TRICYCLICS NEGATIVE (NEG <300 ) Chemistry from 05/24/2014 6:04 AMSODIUM 133 MMOL/L L (136-145 MMOL/L) POTASSIUM 4.5 MMOL/L (3.5-5.1 MMOL/L) CHLORIDE 95 MMOL/L L (98-107 MMOL/L) TCO2 27.8 MMOL/L (21.0-32.0 MMOL/L) ANION GAP 10.2 MMOL/L (8.0-16.0 MMOL/L) BUN 17 MG/DL (7-18 MG/DL) CREATININE 0.89 MG/DL (0.63-1.13 MG/DL) BUN/CREATININE RATIO 19.1 H (9.1-17.0 ) GLUCOSE 366 MG/DL H (65-99 MG/DL) GFR EST NON AFR MACANESE >90 ML/MIN GFRA EST AFR AMER >90 ML/MIN CALCIUM 10.3 MG/DL H (8.5-10.1 MG/DL) BILIRUBIN TOTAL 1.23 MG/DL H (0.20-1.00 MG/DL) TOTAL PROTEIN 8.6 GM/DL H (6.4-8.2 GM/DL) ALBUMIN 4.3 GM/DL (3.4-5.0 GM/DL) GLOBULIN 4.3 GM/DL H (2.3-3.5 GM/DL) A/G RATIO 1.0 MG/DL L (1.5-2.2 MG/DL) ALK PHOS 84 U/L (46-116 U/L) ALT (SGPT) 33 U/L (14-59 U/L) AST (SGOT) 27 U/L (15-37 U/L) TROPONIN-I <0.04 (SEE BELOW ) ALCOHOL <0.003 GM/DL ACETAMINOPHEN <2 MCG/ML L (10-30 MCG/ML) SALICYLATE 0.4 MG/DL L (2.8-20.0 MG/DL) Hematology from 05/24/2014 6:04 AMWBC 13.4 X10e3/UL H (3.6-11.2 X10e3/UL) RBC 4.98 X10e6/UL (4.06-5.63 X10e6/UL) HEMOGLOBIN 15.2 G/DL (12.5-16.3 G/DL) HEMATOCRIT 45.2 % (36.7-47.1 %) MCV 90.8 FL (80.0-100.0 FL) MCH 30.6 PG (27.0-33.0 PG) MCHC 33.6 G/DL (32.0-36.0 G/DL) RDW 13.1 % (12.3-17.0 %) RDWSD 41.1 (37.1-47.8 ) PLATELET 415 X10e3/UL H (159-386 X10e3/UL) MPV 8.2 FL (7.4-10.4 FL) AUTOMATED DIFF PERFORMED SEGS 68.1 % LYMPHOCYTES 24.2 % MONOCYTES 5.7 % EOSINOPHILS 1.6 % BASOPHILS 0.4 % ABSOLUTE NEUTROPHILS 9.10 X10e3/UL H (1.80-7.80 X10e3/UL) ABSOLUTE LYMPHOCYTES 3.30 X10e3/UL H (1.00-3.00 X10e3/UL) ABSOLUTE MONOCYTES 0.80 X10e3/UL (0.30-1.00 X10e3/UL) ABSOLUTE EOSINOPHILS 0.20 X10e3/UL (0.00-0.50 X10e3/UL) ABSOLUTE BASOPHILS 0.10 X10e3/UL (0.00-0.20 X10e3/UL) DX Radiology from 05/24/2014 5:42 AMCHEST 2 VIEWS (Preliminary Result)DATE OF EXAM: May 24 2014 5:59AM Proc: DG 0067 - CHEST 2 VIEWS CPT Code(s): 00924-; ; ; INDICATION / CLINICAL HISTORY: Chest pain. COMPARISON: June 07, 2013. FINDINGS: The cardiac silhouette and pulmonary vasculature are within normal limits. There are no acute infiltrates or effusions. IMPRESSION: No acute cardiopulmonary disease. Problems Encounter Diagnosis No relevant problems exist. [...]
--- OUTSIDE RECORDS SUMMARY | 2016-11-20 13:52 | XMS REPORT ---
Author Author GENERATED, SYSTEM Organization Unknown Address Unknown Phone Unavailable Care Team Providers Care Machinery Cleaner Name Role Phone UNASSIGNED DOCTOR , DOCTOR PP Reason For Visit Reason for Visit from 05/24/2016 12:45 AM:* Pt Stated Reason for Adm : "The orange shorts" Reason for Visit from 05/22/2016 10:31 AM:* Pt Stated Reason for Adm : "The orange shorts" Reason for Visit from 05/21/2016 11:51 PM:* Pt Stated Reason for Adm : "The orange shorts" Chief Complaint UNSPECIFIED SCHIZOPHRENIA OR OTHER Social History Social History from 05/24/2016 12:45 AM:* Tobacco Use? : Current Everyday Smoker Social History from 05/22/2016 10:31 AM:* Tobacco Use? : Current Everyday Smoker Social History from 05/21/2016 11:51 PM:* Tobacco Use? : Current Everyday Smoker Functional Status Functional Status from 05/23/2016 10:02 AM:* LOC : Alert * Oriented To : Person,Place,Time,Event * Weight Bearing Status : Full * Assist Level : Independent * # Assists : Independent Functional Status from 05/22/2016 7:40 PM:* LOC : Alert * Oriented To : Person,Place,Time,Event * Weight Bearing Status : Full * Assist Level : Independent * # Assists : Independent Functional Status from 05/22/2016 9:00 AM:* LOC : Drowsy * Oriented To : Person,Place,Time * Weight Bearing Status : Full * Assist Level : Independent * # Assists : Independent Functional Status from 05/21/2016 11:51 PM:* LOC : Confused * Oriented To : Person,Place,Event * Weight Bearing Status : Full * Assist Level : Independent * # Assists : Independent Vital Signs Hospital Vital Signs from 05/23/2016 6:21 AM:* Height : 5/9 ft,in * Temperature : 98.7 F * Pulse : 96 * Respirations : 18 * BP : 104/61 Hospital Vital Signs from 05/22/2016 9:15 AM:* Height : 5/9 ft,in Hospital Vital Signs from 05/22/2016 4:26 AM:* Height : 5/9 ft,in * Temperature : 97.8 F * Pulse : 95 * Respirations : 20 * BP : 123/83 Hospital Vital Signs from 05/22/2016 1:35 AM:* Height : 5/9 ft,in * Temperature : 97.2 F * Pulse : 107 * Respirations : 22 * BP : 128/84 Hospital Vital Signs from 05/21/2016 11:51 PM:* Weight : 66.5/ kg * Height : 5/9 ft,in Hospital Vital Signs from 05/21/2016 11:49 PM:* Weight : 66.5/ kg * Height : 5/9 ft,in * Temperature : 99.5 F * Pulse : 125 * Respirations : 20 * BP : 153/92 Results Chemistry from 05/23/2016 6:29 AMGLUCOSE (FASTING) 210 MG/DL H (65-99 MG/DL) Chemistry from 05/22/2016 8:15 AM*COCAINE NEGATIVE (NEG <150 ) *PCP NEGATIVE (NEG <25 ) *CANNABINOIDS POSITIVE A (NEG <50 ) *BENZODIAZEINE NEGATIVE (NEG <200 ) *METHAMPHETAMINE/AMPHETAMINE POSITIVE A (NEG <500 ) *BARBITURATES NEGATIVE (NEG <200 ) *OPIATES NEGATIVE (NEG <300 ) Urinalysis from 05/22/2016 8:15 AM*URINE COLOR YELLOW (STRAW/YELL/DK YELL ) *URINE APPEARANCE SL CLOUDY A (CLEAR ) URINE PH 5.5 (5.0-8.0 ) URINE SPECIFIC GRAVITY >1.030 (<=1.005->=1.030 ) *URINE GLUCOSE >1000 MG/DL A (NEGATIVE MG/DL) *URINE BILIRUBIN NEGATIVE (NEGATIVE ) *URINE KETONES TRACE MG/DL A (NEGATIVE MG/DL) *URINE BLOOD MODERATE A (NEGATIVE ) *URINE PROTEIN >300 MG/DL A (NEGATIVE MG/DL) *URINE UROBILINOGEN 0.2 EU/DL (0.2-1.0 EU/DL) *URINE NITRITES POSITIVE A (NEGATIVE ) *URINE LEUKOCYTES TRACE A (NEGATIVE ) *MICROSCOPIC EXAM PERFORMED PERFORMED (Reference Range: not available) *WBC URINE 25-50 /HPF A (0-5 /HPF) *RBC URINE 1-5 /HPF A (0-1 /HPF) *SQUAMOUS EP. CELLS FEW /LPF (NEG-FEW /LPF) *MUCOUS THREADS FEW /LPF A (NEGATIVE /LPF) *BACTERIA MANY /HPF A (NEGATIVE /HPF) *HYALINE CASTS 5-10 /LPF A (0 /LPF) Microbiology from 05/22/2016 8:15 AM* CULTURE URINE (Preliminary Result) Specimen Number: [id number] Sample Collection Date/Time: 05/22/2016 8:15 AM Specimen Source: Urine CULTURE URINE: Gram-negative bacillus >100,000 cfu/ml ID and Susceptibility to follow Problems Encounter Diagnosis * Altered Mental Status Status:Active. * Fall Risk Status:Active. * Mood Disorder Status:Active. * Psychotic Disorder Status:Active. Additional Problems * Acute Pain [...] Encounter Diagnosis * Altered Mental Status Status:Active. * Fall Risk Status:Active. * Mood Disorder Status:Active. * Psychotic Disorder Status:Active. Plan of Care Procedures * Completed Procedure Code: [id number] Procedure Name: not valued, on 05/04/2016 12 :00 AM * Completed , on 02/19/2011 12:00 AM * Completed , on 10/27/2010 12:00 AM * Completed , on 10/22/2010 12:00 AM * Completed , on 10/17/2010 12:00 AM * Completed , on 10/17/2010 12:00 AM * Completed , on 01/18/2009 12:00 AM Immunizations * Influenza, seasonal, injectable (NOVARTIS VACCIN, Lot # [id number]); Administered 02/23/2014 9:20 AM; 0.5 ML=1 DOSE, INTRAMUSCL Hospital Course Hospital Discharge Instructions Allergies, Adverse Reactions, Alerts This section is special service representative of the current allergy information, [...] the responsibility of the patient or patient special service representative to confirm the list of medications with either the patient's personal care provider or the patient's follow-up care provider to ensure the patient has an appropriate list of medications to take at home. Discharge medications New medications* nicotine (polacrilex) (Nicorelief) 2 mg Gum, Ordered By: ERWIN PENALOZA RN, BSN Directions: 1 gum oral hourly for SMOKING CESSATION Additional Instructions: DO NOT GIVE IF PATIENT UNDER AGE 18 OR . Continued medications* OLANZapine (ZyPREXA) 10 mg Tablet, Ordered By: ERWIN PENALOZA RN, BSN Directions: 1 tablet oral daily at bedtime for mood stabilization Changed medications* divalproex (Depakote) 500 mg tablet,delayed release (DR/EC) , Ordered By: ERWIN PENALOZA, RN, BSN Directions: 1 tablet oral twice a day * insulin aspart (NovoLOG) 100 unit/mL Solution, Ordered By: ERWIN PENALOZA RN , BSN Directions: per scale subcutaneous with meals and at bedtime Additional Instructions: For Glucose 61 to 140 Give 0 UNIT ,For Glucose 141 to 160 Give 1 UNIT ,For Glucose 161 to 200 Give 2 UNIT ,For Glucose 201 to 250 Give 3 UNIT ,For Glucose 251 to 300 Give 4 UNIT ,For Glucose 301 to 350 Give 5 UNIT ,For Glucose 351 to 400 Give 6 UNIT; Notify Physician if: blood sugar greater than 400 Stopped medications* None
--- OUTSIDE RECORDS SUMMARY | 2016-11-20 13:52 | XMS REPORT ---
Author Author GENERATED, SYSTEM Organization Unknown Address Unknown Phone Unavailable Care Team Providers Care Coat Hanger Shaper Machine Operator Name Role Phone UNASSIGNED DOCTOR , DOCTOR [...] Smoker Functional Status Functional Status from 05/23/2016 9:20 PM:* LOC : Alert * Oriented To : Person,Place,Time,Event * Weight Bearing Status : Full * Assist Level : Independent * # Assists : Independent Functional Status from 05/23/2016 10:02 AM:* LOC [...] Vital Signs Hospital Vital Signs from 05/23/2016 8:57 PM:* Weight : 70.1/ kg * Height : 5/9 ft,in * Temperature : 98.4 F * Pulse : 106 * Respirations : 18 * BP : 129/85 Hospital Vital Signs from 05/23/2016 6:21 AM:* [...] Microbiology from 05/22/2016 8:15 AM* CULTURE URINE Specimen Number: [id number] Sample Collection Date/Time: 05/22/2016 8:15 AM Specimen Source: Urine CULTURE URINE: Enterobacter cloacae complex >100,000 cfu/ml *ISOLATE1: Enterobacter cloacae complex 1 Comment Result Value Enterobacter cloacae complex Result Status Final Result Aztreonam <=1 S Cefazolin >=64 R Cefepime <=1 S Ceftazidime <=1 S Ceftriaxone <=1 S Ertapenem <=0.5 S Gentamicin <=1 S Levofloxacin <=0.12 S Meropenem <=0.25 S Nitrofurantoin =32 S Tobramycin <=1 S Trimethoprim/Sulfa <=20 S DX Radiology from 05/23/2016 6:31 PMHAND RIGHT 3 VIEWS History: Arm Injury . Technique: 3view hand Priors: 03/11/2016 Findings: There mildly displaced mildly comminuted, intra-articular fractures of the proximal epiphyses of the 4th and 5th metacarpals. There are questionable additional chip fracture of the dorsal hamate. Distal radius ulna appear intact. Impression: Nondisplaced, mildly comminuted tract fractures the proximal epiphyses of the 4th 5th metacarpals. There questionable additional fractures the dorsal hamate. If indicated CT of the right wrist may be useful further evaluation. Electronically signed by: Quincy Martinez MD Dictated: 05/24/2016 07:02 (Reference Range: not available) WRIST RIGHT 3 VIEWS History: pt punched window on unit, right hand and wrist swollen . Technique: 3 view wrist Priors: None. Findings: There mildly comminuted intra-articular fractures of the proximal epiphyses of the 4th and 5th metacarpals. There also questionable chip fractures the dorsal hamate. The distal radius and ulna are intact. The carpals are normally aligned. Impression: Mildly comminuted intra-articular fractures of the proximal epiphyses of the 4th and 5th metacarpals with questionable additional chip fractures the dorsal hamate. If indicated CT of the wrist is recommended for further evaluation. Electronically signed by: Quincy Martinez MD Dictated: 05/24/2016 07:00 (Reference Range: not available) Problems Encounter Diagnosis * Altered Mental Status [...] * Psychotic Disorder Status:Active. Plan of Care Follow-up Appointments from 05/24/2016 12:45 AM:* #1 Office appointment: : per [facility] Procedures * Completed Procedure Code: [id number] Procedure Name: not valued, on 05/04/2016 12 :00 AM * Completed , on 02/19/2011 12:00 AM * Completed , on 10/27/2010 12:00 AM * Completed , on 10/22/2010 12:00 AM * Completed , on 10/17/2010 12:00 AM * Completed , on 10/17/2010 12:00 AM * Completed , on 01/18/2009 12:00 AM Immunizations * Influenza, seasonal, injectable (NOVARTIS VACCIN, Lot # [id number]); Administered 02/23/2014 9:20 AM; 0.5 ML=1 DOSE, INTRAMUSCL Hospital Course Hospital Discharge Instructions How to care for yourself at home from 05/24/2016 12:45 AM:* Discharge Activity : Activity as tolerated,May Shower * Discharge Diet : Diet as tolerated * Discharge Diet: : Regular * Call your doctor if: : Fever over 101 F or severe chills,Chest pain or other unexplained symptoms,Tingling or numbness develops,A sudden increase or decrease in weight,You have persistent or worsening symptoms * Specific Discharge Teaching Instructions Reviewed: : Stop Smoking Allergies, Adverse Reactions, Alerts This section is development representative of the current allergy information, at [...] the responsibility of the patient or patient development representative to confirm the list of [...] tablet,delayed release (DR/EC) , Ordered By: ERWIN PENALOZA RN, BSN Directions: 1 tablet oral twice [...]
--- OUTSIDE RECORDS SUMMARY | 2016-11-20 13:53 | XMS REPORT ---
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 PP Unavailable Reason For Visit [...]
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
[2016-11-20] MEDS ORDERED: ONDANSETRON 4 MG/2 ML (SDV) Z0FRAN ONE (14:54)
[2016-11-20] MEDS ORDERED: SEVOFLURANE (ULTANE) 15 ML INHAL SOLN ONE (14:54)
[2016-11-20] MEDS ORDERED: 1/2 NS IV SOLUTION 1,000 ML IV SCH (15:00)
[2016-11-20] MEDS ORDERED: PIPERACILLIN SODIUM/TAZOBACTAM 4.5 GM in NS (IVPB) 100 ML IV ONE (15:00)
[2016-11-20] MEDS ORDERED: VANCOMYCIN INJECTION 0.1 MG in NS (IVPB) 250 ML IV SCH (15:00)
[2016-11-20] MEDS ORDERED: ONDANSETRON 4 MG/2 ML (SDV) Z0FRAN IVP PRN (15:15)
[2016-11-20] MEDS ORDERED: PROMETHAZINE INJ 25 MG/ML (PHENERGAN) AMP IVP PRN (15:15)
[2016-11-20] MEDS ORDERED: HYDROmorphone (DILAUDID) 2 MG/ML VIAL IVP PRN (15:15)
[2016-11-20] MEDS: morphine INJ 10 MG/ML 1ML (SYR OR VIAL) IVP PRN ×3 (15:20→22:07)
--- NOTE | 2016-11-20 15:37 | Progress Note-Post Operative ---
Post-Operative Progess Note Surgeon (s)/Field Clerk (s) Surgeon GIO SALAZAR MD Field Clerk: None Pre-Operative Diagnosis Hand infection Post-Operative Diagnosis Left Index finger dorsal and flexor space infection and tenosynovitis Procedure & Operative Findings Date of Procedure 11/20/16 Procedure Performed/Findings Irrigation and debridement of skin, sub-q and bone, and irrigation of flexor tendon sheath left hand, left index finger. Anesthesia Type GETA Estimated Blood Loss Estimated blood loss (mL): minimal Specimens/Packing Specimens Removed none GIO SALAZAR MD Nov 20, 2016 3:37 pm
[2016-11-20 15:58] VITALS: BP 120/77
[2016-11-20] MEDS: oxyCODONE/APAP 5/325MG (PERCOCET 5) TABLET PO PRN ×3 (16:10→23:55)
[2016-11-20] MEDS ORDERED: morphine INJ 10 MG/ML 1ML (SYR OR VIAL) IVP PRN (16:30)
[2016-11-20] MEDS: 1/2 NS IV SOLUTION 1,000 ML IV SCH (17:03)
[2016-11-20] MEDS: inSUlin ASPART (NovoLOG) 1 UNIT/0.01 ML (CHARGE PER UNIT) SC SCH ×2 (17:03→22:06)
[2016-11-20] MEDS: CLINDAMYCIN INJECTION 600 MG in NS (IVPB) 50 ML IV SCH (17:04)
[2016-11-20] MEDS: AUGMENTIN 875 MG TAB (AMOXICILLIN/CLAVULANATE) PO SCH (17:04)
[2016-11-20] MEDS ORDERED: INFLUENZA TRIvalent 2017-2018 0.5 ML/45 MCG SYR IM ONE (18:30)
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
[2016-11-20 19:55] VITALS: BP 123/77
[2016-11-20] MEDS ORDERED: inSUlin DETERMIR 1 UNIT/0.01 ML (LEVEMIR) CHARGE PER UNIT SQ SCH (21:00)
[2016-11-20] MEDS: diphenhydrAMINE 25 MG TAB (BENADRYL) PO PRN (23:59)
[2016-11-21] VITALS: BP 134/80
[2016-11-21] MEDS: 1/2 NS IV SOLUTION 1,000 ML IV SCH ×3 (00:01→15:55)
[2016-11-21] MEDS: CLINDAMYCIN INJECTION 600 MG in NS (IVPB) 50 ML IV SCH ×3 (02:31→18:00)
[2016-11-21] MEDS: oxyCODONE/APAP 5/325MG (PERCOCET 5) TABLET PO PRN ×4 (03:52→15:53)
[2016-11-21 04:08] VITALS: BP 121/70
[2016-11-21] MEDS: inSUlin ASPART (NovoLOG) 1 UNIT/0.01 ML (CHARGE PER UNIT) SC SCH ×3 (05:27→16:00)
[2016-11-21] MEDS: AUGMENTIN 875 MG TAB (AMOXICILLIN/CLAVULANATE) PO SCH ×2 (06:06→16:29)
[2016-11-21] MEDS: morphine INJ 10 MG/ML 1ML (SYR OR VIAL) IVP PRN ×7 (06:07→19:18)
[2016-11-21 06:37] LABS: MEAN PLATELET VOLUME 9.6 FL (7.4-10.4); RED BLOOD COUNT 4.34 10^6/uL (4.35-5.85); RED CELL DISTRIBUTION WIDTH 12.6 % (10.0-14.5); WHITE BLOOD COUNT 12.9 10^3/uL (4.3-11.0)
[2016-11-21 07:00] LABS: ANION GAP 9 MMOL/L (5-14); BLOOD UREA NITROGEN 18 MG/DL (7-18); BUN/CREATININE RATIO 19; CALCIUM 8.7 MG/DL (8.5-10.1); CARBON DIOXIDE 24 MMOL/L (21-32); CHLORIDE 105 MMOL/L (98-107); CREATININE SERUM 0.93 MG/DL (0.60-1.30); GFR ESTIMATED > 60; GLUCOSE 70 MG/DL (70-105); POTASSIUM 3.7 MMOL/L (3.6-5.0); SODIUM 138 MMOL/L (135-145)
[2016-11-21 08:13] VITALS: BP 132/83
[2016-11-21] MEDS: diphenhydrAMINE 25 MG TAB (BENADRYL) PO PRN ×2 (08:23→16:25)
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
[2016-11-21] MEDS ORDERED: INSU100V5 SQ (12:25)
[2016-11-21] MEDS ORDERED: INSU100V16 SQ (12:25)
[2016-11-21 12:34] VITALS: BP 106/67
--- NOTE | 2016-11-21 13:04 | Anesthesia-General Post-Op ---
General Patient Condition Mental Status/LOC: Same as Preop Cardiovascular: Satisfactory Nausea/Vomiting: Absent Respiratory: Satisfactory Pain: Controlled Complications: Absent Post Op Complications Complications None Follow Up Care/Instructions Patient Instructions None needed. Anesthesia/Patient Condition Patient Condition Patient is doing well, no complaints, stable vital signs, no apparent adverse anesthesia problems. No complications reported per nursing. D/C home per [facility] Criteria: No AMBAR BRENNER CRNA Nov 21, 2016 13:04
[2016-11-21 16:15] VITALS: BP 140/90
[2016-11-21] MEDS ORDERED: CLIN300C11 PO (19:17)
[2016-11-21] MEDS ORDERED: OXYC-471 PO (19:17)
[2016-11-21] MEDS ORDERED: AMOX1TAB12 PO (19:17)
--- NOTE | 2016-11-21 19:19 | Progress Note-Standard ---
Standard Progress Note Progress Notes/Assess & Plan Date Seen by Provider: Nov 21, 2016 Time Seen by Provider: 19:18 Progress/Assessment & Plan Doing better, wants to go home, feels good. Pain better Afeb, vss Neuro stable Dressing changed Instructions given To follow up with wound care and take his antibiotics Imp: Left long finger infection D/C home GIO SALAZAR MD Nov 21, 2016 7:19 pm
[2016-11-21 19:30] VITALS: BP 138/88
== END 2016-11-21 19:30 | disposition home or self-care (01) ==
LOC: EDUNIT# 10:12 → ER 10:16 → SDC 13:11 → 4TH 16:00 → SDC 11-21 19:30
PROVIDERS: ATTEND Orthopaedic Surgery Orthopaedic Surgery of the Spine
DX: L03.012 Cellulitis of left finger (principal); S61.253D Open bite of left middle finger without damage to nail, subsequent encounter; B95.1 Streptococcus, group B, as the cause of diseases classified elsewhere; Y04.1XXD Assault by human bite, subsequent encounter; E10.9 Type 1 diabetes mellitus without complications; M65.142 Other infective (teno)synovitis, left hand; D47.3 Essential (hemorrhagic) thrombocythemia; F17.210 Nicotine dependence, cigarettes, uncomplicated; Z79.4 Long term (current) use of insulin
CPT/HCPCS: 36415; 73130; 80048; 80053; 82962; 83605; 85025; 85027; 86141; 87040; 87070; 87077; 87205; 90715